=== PATIENT | female | born 1960 | race Caucasian/White ===

== ENCOUNTER 2016-10-30 16:43 | Emergency (ER) | payer MEDICARE ==
[2016-10-30 16:58] VITALS: BP 151/101
[2016-10-30] MEDS ORDERED: CEPH500C PO (17:14)
[2016-10-30] MEDS ORDERED: TRAM1TAB4 PO (17:14)
--- NOTE | 2016-10-30 17:15 | PHYS DOC ---
Past Medical History Past Medical History: Hypertension, Hypothyroid Additional Past Medical Histor: BACK PAIN Past Surgical History: No Surgical History Alcohol Use: None Drug Use: None Adult General Chief Complaint Chief Complaint: DENTAL PROBLEM HPI HPI Patient is a 56 year old female presents emergency room with a primary complaint of left lower dental pain for the past 3-4 days. She states that she essentially had a broken tooth within that timeframe. Patient does admit to having chronic dental problems and ongoing cavities. She denies any antibiotic use or dental work within the past 90 days. Review of Systems Review of Systems Constitutional: Denies fever or chills [] Eyes: Denies change in visual acuity, redness, or eye pain [] HENT: Denies nasal congestion or sore throat [] Respiratory: Denies cough or shortness of breath [] Cardiovascular: No additional information not addressed in HPI [] GI: Denies abdominal pain, nausea, vomiting, bloody stools or diarrhea [] : Denies dysuria or hematuria [] Musculoskeletal: Denies back pain or joint pain [] Integument: Denies rash or skin lesions [] Neurologic: Denies headache, focal weakness or sensory changes [] Endocrine: Denies polyuria or polydipsia [] Allergies Allergies Allergies Coded Allergies Type Severity Reaction Last Updated Verified NSAIDS (Non-Steroidal Anti-Inflamma Allergy Intermediate PASS OUT 10/30/16 Yes Penicillins Allergy Intermediate RASH 10/30/16 Yes Sulfa (Sulfonamide Antibiotics) Allergy Intermediate RASH 10/30/16 Yes Tetracyclines Allergy Intermediate RASH 10/30/16 Yes aspirin Allergy Intermediate PASS OUT 10/30/16 Yes Physical Exam Physical Exam Constitutional: Well developed, well nourished, no acute distress, non-toxic appearance. [] HENT: Normocephalic, atraumatic, bilateral external ears normal, oropharynx moist, no oral exudates, nose normal. There is no trismus. There is widespread dental caries and very stages of decay. The left first mandibular molar is decayed to the gumline with mild gingival swelling. There is no adjacent gingival abscesses or purulent drainage. Eyes: PERRLA, EOMI, conjunctiva normal, no discharge. [] Neck: Normal range of motion, no tenderness, supple, no stridor. [] Cardiovascular:Heart rate regular rhythm, no murmur [] Lungs & Thorax: Bilateral breath sounds clear to auscultation [] Abdomen: Bowel sounds normal, soft, no tenderness, no masses, no pulsatile masses. [] Skin: Warm, dry, no erythema, no rash. [] Back: No tenderness, no CVA tenderness. [] Extremities: No tenderness, no cyanosis, no clubbing, ROM intact, no edema. [] Neurologic: Alert and oriented X 3, normal motor function, normal sensory function, no focal deficits noted. [] Psychologic: Affect normal, judgement normal, mood normal. [] Current Patient Data Vital Signs Vital Signs Date Time Temp Pulse Resp B/P Pulse Ox O2 Delivery O2 Flow Rate FiO2 10/30/16 16:58 113 22 97 Room Air EKG EKG [] Radiology/Procedures Radiology/Procedures [] Course & Med Decision Making Course & Med Decision Making Pertinent Labs and Imaging studies reviewed. (See chart for details) [] Dragon Disclaimer Dragon Disclaimer This electronic medical record was generated, in whole or in part, using a voice recognition dictation system. Departure Departure Impression: Primary Impression: Dental caries Disposition: HOME, SELF-CARE Condition: GOOD Patient Instructions: Dental Caries-Brief Additional Instructions: 1. Take the medications as prescribed. 2. Review the discharge instructions provided for self-care and reasons to return to the emergency department. 3. Use the list provided for assistance in finding a clinic or dental school to provide dental care. Be sure to begin calling Tuesday to schedule an appointment. Scripts Tramadol Hcl/Acetaminophen (Tramadol-Acetaminophn 37.5-325)1 Each Tablet1 Tab PO Q4-6HRS #20 TAB Prov:BASIM DOUGLAS 10/30/16 Cephalexin 500 Mg Capsule1 Cap PO TID #30 CAP Prov:BASIM DOUGALS 10/30/16 BASIM DOUGLAS Oct 30, 2016 17:15
[2016-10-31] MEDS ORDERED: ONDA4TAB7 PO (05:57)
== END 2016-10-30 17:23 | disposition home or self-care (01) ==
LOC: ER 16:43
DX: K02.9 Dental caries, unspecified (principal); K08.89 Other specified disorders of teeth and supporting structures; K03.81 Cracked tooth; E03.9 Hypothyroidism, unspecified; I10 Essential (primary) hypertension; Z88.0 Allergy status to penicillin; Z88.2 Allergy status to sulfonamides; Z88.8 Allergy status to other drugs, medicaments and biological substances
CPT/HCPCS: 99283

== ENCOUNTER 2016-10-31 05:04 | Emergency (ER) | payer MEDICARE ==
[~2016-10-31] VITALS: Ht 160 cm; Wt 89.8 kg
[~2016-10-31 05:04] MED LIST: CEPH500C PO; TRAM1TAB4 PO
[2016-10-31 05:14] VITALS: BP 151/94
--- NOTE | 2016-10-31 05:28 | PHYS DOC ---
Past Medical History Past Medical History: Hypertension, Hypothyroid Additional Past Medical Histor: BACK PAIN Past Surgical History: No Surgical History Alcohol Use: None Drug Use: None Adult General Chief Complaint Chief Complaint: NAUSEA/VOMITING/DIARRHA HPI HPI 56-year-old female who seen earlier today and given a prescription for Keflex for an ongoing tooth infection is now she's had persistent nausea and vomiting for the last 3 hours. She does states she has significant sciatic pain that she suffers from chronically he has minimal take her pain medications because of the nausea and vomiting. She additionally states she is having ongoing tooth pain. Patient states she's allergic to NSAIDs. She does admit to smoking marijuana tonight and having an alcoholic beverage prior to her symptoms. She does claim some mild epigastric discomfort. Review of Systems Review of Systems Constitutional: Denies fever or chills [] Eyes: Denies change in visual acuity, redness, or eye pain [] HENT: Denies nasal congestion or sore throat [] Respiratory: Denies cough or shortness of breath [] Cardiovascular: No additional information not addressed in HPI [] GI: Has abdominal pain, has nausea, has vomiting, denies bloody stools, denies diarrhea [] : Denies dysuria or hematuria [] Musculoskeletal: Denies back pain or joint pain [] Integument: Denies rash or skin lesions [] Neurologic: Denies headache, focal weakness or sensory changes [] Endocrine: Denies polyuria or polydipsia [] Current Medications Current Medications Current Medications Medications (Trade) Dose Ordered Sig/Mario Start Time Stop Time Status Last Admin Dose Admin Multi-Ingredient Mouthwash/Gargle (Gi Cocktail Single Dose) 15 ml 1X ONCE 10/31/16 05:30 10/31/16 05:31 DC 10/31/16 05:35 15 ML Ondansetron HCl (Zofran Odt) 4 mg 1X ONCE 10/31/16 05:30 10/31/16 05:31 DC 10/31/16 05:35 4 MG Allergies Allergies Allergies Coded Allergies Type Severity Reaction Last Updated Verified NSAIDS (Non-Steroidal Anti-Inflamma Allergy Intermediate PASS OUT 10/30/16 Yes Penicillins Allergy Intermediate RASH 10/30/16 Yes Sulfa (Sulfonamide Antibiotics) Allergy Intermediate RASH 10/30/16 Yes Tetracyclines Allergy Intermediate RASH 10/30/16 Yes aspirin Allergy Intermediate PASS OUT 10/30/16 Yes Physical Exam Physical Exam Constitutional: Well developed, well nourished, no acute distress, non-toxic appearance. [] HENT: Normocephalic, atraumatic, bilateral external ears normal, oropharynx moist, no oral exudates, nose normal. [] Eyes: PERRLA, EOMI, conjunctiva normal, no discharge. [] Neck: Normal range of motion, no tenderness, supple, no stridor. [] Cardiovascular:Heart rate regular rhythm, no murmur [] Lungs & Thorax: Bilateral breath sounds clear to auscultation [] Abdomen: Bowel sounds normal, soft, moderate epigastric tenderness, no masses, no pulsatile masses. [] Skin: Warm, dry, no erythema, no rash. [] Back: No tenderness, no CVA tenderness. [] Extremities: No tenderness, no cyanosis, no clubbing, ROM intact, no edema. [] Neurologic: Alert and oriented X 3, normal motor function, normal sensory function, no focal deficits noted. [] Psychologic: Affect normal, judgement normal, mood normal. [] Current Patient Data Vital Signs Vital Signs Date Time Temp Pulse Resp B/P Pulse Ox O2 Delivery O2 Flow Rate FiO2 10/31/16 05:14 98.3 87 16 151/94 97 Room Air 98.3 EKG EKG [] Radiology/Procedures Radiology/Procedures [] Course & Med Decision Making Course & Med Decision Making Pertinent Labs and Imaging studies reviewed. (See chart for details) This 56-year-old female who's had multiple episodes of nausea and vomiting will be given a dose of Zofran and a GI cocktail. A counselor at length that if she can stay well-hydrated that she will be safe to go home and continue taking her medications as prescribed. At this time her vital signs are normal and she does not appear toxic in any way. I do not see an indication to perform any laboratory workup as her symptom duration has only been for the last few hours. Ultimately, she will be discharged home to follow closely with her primary care doctor and a dentist for her tooth infection. I will be signing her out to Dr. Wong who will watch her closely for the next hour or so and she will then be discharged home with zofran and told to continue to take her medications as prescribed and continue to drink plenty of fluids at home. Vandana Disclaimer Dragpete Disclaimer This electronic medical record was generated, in whole or in part, using a voice recognition dictation system. Departure Departure Impression: Primary Impression: Dental caries Additional Impression: Nausea & vomiting Disposition: HOME, SELF-CARE Condition: STABLE Referrals: NO PCP (PCP) Patient Instructions: Dental Caries, Nausea and Vomiting, [id number] Additional Instructions: Please take your zofran as needed. Continue to take your antibiotic and pain medication as prescribed. Continue to drink plenty of fluids and stay well hydrated. Follow up with your primary doctor in the next 2-3 days and your dentist for your tooth infection. Scripts Ondansetron Hcl (Zofran)4 Mg Tablet4 Mg PO BID PRN NAUSEA/VOMITING #10 TAB Prov:ROBERT MARTINEZ DO 10/31/16 Problem Qualifiers ROBERT MARTINEZ DO Oct 31, 2016 05:28
[2016-10-31] MEDS ORDERED: LIDO:MAALOX:DONNATAL 1:1:1 15 ML SINGLE DOSE SWSW ONE (05:30)
[2016-10-31] MEDS ORDERED: ONDANSETRON ODT 4 MG TAB.RAPDIS PO ONE (05:30)
[2016-10-31] MEDS ORDERED: ONDA4TAB7 PO (05:57)
== END 2016-10-31 06:47 | disposition home or self-care (01) ==
LOC: ER 05:04
DX: R11.2 Nausea with vomiting, unspecified (principal); K02.9 Dental caries, unspecified; R10.13 Epigastric pain; I10 Essential (primary) hypertension; E03.9 Hypothyroidism, unspecified; Z88.2 Allergy status to sulfonamides; Z88.0 Allergy status to penicillin; Z88.6 Allergy status to analgesic agent; Z88.8 Allergy status to other drugs, medicaments and biological substances
CPT/HCPCS: 99283; Q0162

== ENCOUNTER 2016-11-24 18:30 | Emergency (ER) | payer MEDICARE ==
[~2016-11-24 18:30] MED LIST changes: +ONDA4TAB7 PO
== END 2016-11-24 20:15 | disposition left against medical advice (07) ==
LOC: ER 18:30
DX: R19.7 Diarrhea, unspecified (principal); Z53.21 Procedure and treatment not carried out due to patient leaving prior to being seen by health care provider

== ENCOUNTER 2017-02-17 11:35 | Emergency (ER) | payer MEDICARE ==
[~2017-02-17] VITALS: Ht 160 cm; Wt 91.2 kg
[2017-02-17 12:17] VITALS: BP 159/90
--- NOTE | 2017-02-17 12:42 | RAD ---
Lumbar spine, 3 views, 02/17/2017: History: Fall, patellar pain There is a mild lumbar scoliosis. The lumbar vertebral heights are well-maintained. There are moderate spurs, particularly in the upper lumbar spine. There are moderate degenerative changes involving the facet joints in the lower lumbar spine. Aortic calcific plaquing is present. IMPRESSION: 1. Moderate multilevel degenerative change. 2. No acute bony abnormality is detected. Pelvis with left hip, 02/17/2017: No fracture or dislocation is identified. The hip joint spaces are well preserved. There are mild marginal spurs at both hip joints. IMPRESSION: No acute pelvic or left hip abnormality is detected.
--- NOTE | 2017-02-17 12:53 | RAD ---
Indication fall. Head and facial injury. Noncontrast images of the head were obtained. Maxillofacial structures were also imaged. Maxillofacial images were reformatted in the coronal and sagittal planes. No prior imaging of the head is available. CT head: Findings. The calvarium appears unremarkable. The visualized paranasal sinuses appear normal. There is no subdural or epidural hematoma. There is no mass or midline shift. No hemorrhage is seen. No acute finding is apparent. Maxillofacial CT: Findings. There is some slight soft tissue swelling over the left forehead. Small polyps or retention cysts are noted associated with the left maxillary sinus. The mandible appears unremarkable. Zygomatic arches appear normal. No nasal or maxillary fracture is seen. The medial and lateral muñoz of the orbits appear normal. IMPRESSION: Negative study for facial fracture. Intracranially no acute or significant finding seen PQRS Compliance Statement: One or more of the following individualized dose reduction techniques were utilized for this examination: 1. Automated exposure control 2. Adjustment of the mA and/or kV according to patient size 3. Use of iterative reconstruction technique
[2017-02-17] MEDS ORDERED: METH-37 PO (13:07)
--- NOTE | 2017-02-17 13:07 | PHYS DOC ---
Past Medical History Past Medical History: Hypertension, Hypothyroid Additional Past Medical Histor: BACK PAIN Past Surgical History: No Surgical History Alcohol Use: Occasionally Drug Use: Marijuana Adult General Chief Complaint Chief Complaint: MECHANICAL FALL HPI HPI Patient is a 56 year old female with history of hypertension, hypothyroidism, chronic back pain, who presents today with mild left hip pain, low back pain, after falling 6 days ago, patient states the pain is worse when ambulating. Patient states she was at a bus stop sitting on a bench she states it was raining, she states she fell down 5 times from the bench. Patient denies any loss of consciousness. She does have facial bruising. She is denying any facial pain. She appears intoxicated. Review of Systems Review of Systems Constitutional: Denies fever or chills [] Eyes: Ecchymosis to the left eye HENT: Denies nasal congestion or sore throat [] Respiratory: Denies cough or shortness of breath [] Cardiovascular: No additional information not addressed in HPI [] GI: Denies abdominal pain, nausea, vomiting, bloody stools or diarrhea [] : Denies dysuria or hematuria [] Musculoskeletal: Left hip and low back pain Integument: Denies rash or skin lesions [] Neurologic: Denies headache, focal weakness or sensory changes [] Endocrine: Denies polyuria or polydipsia [] Allergies Allergies Allergies Coded Allergies Type Severity Reaction Last Updated Verified NSAIDS (Non-Steroidal Anti-Inflamma Allergy Intermediate PASS OUT 10/30/16 Yes Penicillins Allergy Intermediate RASH 10/30/16 Yes Sulfa (Sulfonamide Antibiotics) Allergy Intermediate RASH 10/30/16 Yes Tetracyclines Allergy Intermediate RASH 10/30/16 Yes aspirin Allergy Intermediate PASS OUT 10/30/16 Yes Physical Exam Physical Exam Constitutional: Well developed, well nourished, no acute distress, non-toxic appearance. [] HENT: Normocephalic, atraumatic, bilateral external ears normal, oropharynx moist, no oral exudates, nose normal. [] Eyes: PERRLA, EOMI, conjunctiva normal, no discharge. Mild periorbital ecchymosis noted on the left lower eyelid Neck: Normal range of motion, no tenderness, supple, no stridor. [] Cardiovascular:Heart rate regular rhythm, no murmur [] Lungs & Thorax: Bilateral breath sounds clear to auscultation [] Abdomen: Bowel sounds normal, soft, no tenderness, no masses, no pulsatile masses. [] Skin: Warm, dry, no erythema, no rash. [] Back: Diffuse paraspinal muscle tenderness to the left lower lumbar region, no midline tenderness, no CVA tenderness. [] Extremities: Mild tenderness of the left lateral hip region. Full range of motion to the left hip. +2 left pedal pulse. Neurologic: Alert and oriented X 3, normal motor function, normal sensory function, no focal deficits noted. [] Psychologic: Affect normal, judgement normal, mood normal. [] Current Patient Data Vital Signs Vital Signs Date Time Temp Pulse Resp B/P (MAP) Pulse Ox O2 Delivery O2 Flow Rate FiO2 02/17/17 12:17 98.6 100 18 94 Room Air 98.6 EKG EKG [] Radiology/Procedures Radiology/Procedures [] Course & Med Decision Making Course & Med Decision Making Pertinent Labs and Imaging studies reviewed. (See chart for details) Patient is in the ED complaining of low back pain, left hip pain, after falling down 6 days ago at the bus stop. She is noted to have periorbital ecchymosis on the left lower eyelid. We did a CT of the head and faciomaxillary which were negative for any acute findings. X-rays of the lumbar spine and were negative for any acute findings. Discharged with Robaxin. Instructed to follow-up with her own PCP. She does appear intoxicated in the ED though she denies any history of alcohol or drug abuse. Dragon Disclaimer Dragon Disclaimer This electronic medical record was generated, in whole or in part, using a voice recognition dictation system. Departure Departure Impression: Primary Impression: Fall from chair Additional Impressions: Lumbar contusion Contusion of face Contusion of hip, left Disposition: HOME, SELF-CARE Condition: STABLE Referrals: NO PCP (PCP) Follow-up with your doctor in one week Patient Instructions: Contusion, Fall Prevention and Home Safety, [id number] Additional Instructions: You were seen for hip pain, low back pain, and facial contusion after falling. Your x-rays and CT were normal today. We recommend you follow-up with your own primary care doctor in the next 7 days. Scripts Methocarbamol (ROBAXIN) 500 Mg Tablet 1 TAB PO TID, #25 TAB Prov: MUTUNGKARLA Singh APRN 02/17/17 Problem Qualifiers Primary Impression: Fall from chair Encounter type: initial encounter Qualified Codes: W07.XXXA - Fall from chair, initial encounter Additional Impressions: Lumbar contusion Encounter type: initial encounter Qualified Codes: S30.0XXA - Contusion of lower back and pelvis, initial encounter Contusion of face Encounter type: initial encounter Qualified Codes: S00.83XA - Contusion of other part of head, initial encounter KARLA MATHIAS APRN February 17, 2017 13:07
== END 2017-02-17 13:10 | disposition home or self-care (01) ==
LOC: ER 11:35
DX: S30.0XXA Contusion of lower back and pelvis, initial encounter (principal); S00.83XA Contusion of other part of head, initial encounter; S70.02XA Contusion of left hip, initial encounter; I10 Essential (primary) hypertension; E03.9 Hypothyroidism, unspecified; F12.10 Cannabis abuse, uncomplicated; Z88.0 Allergy status to penicillin; Z88.2 Allergy status to sulfonamides; Z88.1 Allergy status to other antibiotic agents; Z88.6 Allergy status to analgesic agent; W17.89XA Other fall from one level to another, initial encounter; Y93.89 Activity, other specified; Y92.521 Bus station as the place of occurrence of the external cause; Y99.8 Other external cause status
CPT/HCPCS: 70450; 70486; 72100; 73502; 99284-25

== ENCOUNTER 2017-03-22 17:57 | Inpatient (IN) | payer MEDICARE ==
[~2017-03-22] VITALS: Ht 160 cm; Wt 88.9 kg
[~2017-03-22 17:57] MED LIST changes: +METH-37 PO
--- NOTE | 2017-03-22 18:02 | PHYS DOC ---
Past Medical History Past Medical History: Hypertension, Hypothyroid Additional Past Medical Histor: BACK PAIN Past Surgical History: No Surgical History Alcohol Use: Occasionally Drug Use: Marijuana Adult General Chief Complaint Chief Complaint: SHORTNESS OF BREATH HPI HPI Patient is a 56 year old female who presents with productive cough and fever. She states it started feeling poorly couple days ago and she's been having green sputum production. She states she also feels nauseated. She does smoke and is trying to decrease how much she smokes. She has an albuterol inhaler that she's been using because of increasing shortness of breath. She states she was also hospitalized in October for pneumonia. Review of Systems Review of Systems Constitutional: Denies fever or chills [] Eyes: Denies change in visual acuity, redness, or eye pain [] HENT: Denies nasal congestion or sore throat [] Respiratory: As it for cough and shortness of breath. Cardiovascular: No additional information not addressed in HPI [] GI: Denies abdominal pain, nausea, vomiting, bloody stools or diarrhea [] : Denies dysuria or hematuria [] Musculoskeletal: Denies back pain or joint pain [] Integument: Denies rash or skin lesions [] Neurologic: Denies headache, focal weakness or sensory changes [] Endocrine: Denies polyuria or polydipsia [] Current Medications Current Medications Current Medications Medications (Trade) Dose Ordered Sig/Mario Start Time Stop Time Status Last Admin Dose Admin Acetaminophen (Tylenol) 1,000 mg 1X ONCE 03/22/17 19:30 03/22/17 19:31 DC 03/22/17 19:12 1,000 MG Albuterol/ Ipratropium (Duoneb) 3 ml 1X ONCE 03/22/17 19:00 03/22/17 19:01 DC 03/22/17 18:32 3 ML Azithromycin 250 ml @ 250 mls/hr 1X ONCE 03/22/17 21:00 03/22/17 21:59 Ceftriaxone Sodium 1 gm/ Sodium Chloride 50 ml @ 100 mls/hr Q24H 03/22/17 20:30 UNV Ondansetron HCl (Zofran) 4 mg 1X ONCE 03/22/17 19:30 03/22/17 19:31 DC 03/22/17 19:13 4 MG Sodium Chloride 1,000 ml @ 1,000 mls/hr 1X ONCE 03/22/17 19:30 03/22/17 20:29 DC 03/22/17 19:14 1,000 MLS/HR Allergies Allergies Allergies Coded Allergies Type Severity Reaction Last Updated Verified NSAIDS (Non-Steroidal Anti-Inflamma Allergy Intermediate PASS OUT 10/30/16 Yes Penicillins Allergy Intermediate RASH 10/30/16 Yes Sulfa (Sulfonamide Antibiotics) Allergy Intermediate RASH 10/30/16 Yes Tetracyclines Allergy Intermediate RASH 10/30/16 Yes aspirin Allergy Intermediate PASS OUT 10/30/16 Yes Physical Exam Physical Exam Constitutional: Well developed, well nourished, no acute distress, non-toxic appearance. [] HENT: Normocephalic, atraumatic, bilateral external ears normal, oropharynx moist, no oral exudates, nose normal. [] Eyes: PERRLA, EOMI, conjunctiva normal, no discharge. [] Neck: Normal range of motion, no tenderness, supple, no stridor. [] Cardiovascular:Heart rate regular rhythm, no murmur [] Lungs & Thorax: Coarse bilaterally with expiratory wheezes Abdomen: Bowel sounds normal, soft, no tenderness, no masses, no pulsatile masses. [] Skin: Warm, dry, no erythema, no rash. [] Back: No tenderness, no CVA tenderness. [] Extremities: No tenderness, no cyanosis, no clubbing, ROM intact, no edema. [] Neurologic: Alert and oriented X 3, normal motor function, normal sensory function, no focal deficits noted. [] Psychologic: Affect normal, judgement normal, mood normal. [] Current Patient Data Vital Signs Vital Signs Date Time Temp Pulse Resp B/P (MAP) Pulse Ox O2 Delivery O2 Flow Rate FiO2 03/22/17 19:57 104 130/85 (100) 91 Room Air 03/22/17 18:30 29 03/22/17 18:00 100.1 100.1 Lab Values Laboratory Tests Test 03/22/17 18:10 03/22/17 18:40 White Blood Count 9.2 x10^3/uL (4.0-11.0) Red Blood Count 4.77 x10^6/uL (3.50-5.40) Hemoglobin 14.7 g/dL (12.0-15.5) Hematocrit 42.6 % (36.0-47.0) Mean Corpuscular Volume 89 fL (79-100) Mean Corpuscular Hemoglobin 31 pg (25-35) Mean Corpuscular Hemoglobin Concent 34 g/dL (31-37) Red Cell Distribution Width 14.5 % (11.5-14.5) Platelet Count 285 x10^3/uL (140-400) Neutrophils (%) (Auto) 75 % (31-73) H Lymphocytes (%) (Auto) 17 % (24-48) L Monocytes (%) (Auto) 7 % (0-9) Eosinophils (%) (Auto) 0 % (0-3) Basophils (%) (Auto) 1 % (0-3) Neutrophils # (Auto) 6.9 x10^3uL (1.8-7.7) Lymphocytes # (Auto) 1.6 x10^3/uL (1.0-4.8) Monocytes # (Auto) 0.7 x10^3/uL (0.0-1.1) Eosinophils # (Auto) 0.0 x10^3/uL (0.0-0.7) Basophils # (Auto) 0.1 x10^3/uL (0.0-0.2) Sodium Level 138 mmol/L (136-145) Potassium Level 3.5 mmol/L (3.5-5.1) Chloride Level 100 mmol/L (98-107) Carbon Dioxide Level 26 mmol/L (21-32) Anion Gap 12 (6-14) Blood Urea Nitrogen 11 mg/dL (7-20) Creatinine 0.8 mg/dL (0.6-1.0) Estimated GFR (Cockcroft-Gault) 74.2 Glucose Level 120 mg/dL (70-99) H Lactic Acid Level 2.6 mmol/L (0.4-2.0) H Calcium Level 9.4 mg/dL (8.5-10.1) Magnesium Level 1.6 mg/dL (1.8-2.4) L Total Bilirubin 0.4 mg/dL (0.2-1.0) Direct Bilirubin 0.1 mg/dL (0.0-0.2) Aspartate Amino Transferase (AST) 17 U/L (15-37) Alanine Aminotransferase (ALT) 21 U/L (14-59) Alkaline Phosphatase 116 U/L (46-116) Creatine Kinase 68 U/L (26-192) Creatine Kinase MB (Mass) 0.8 ng/mL (0.0-3.6) Creatine Kinase MB Relative Index % (0-4) Troponin I Quantitative < 0.017 ng/mL (0.000-0.055) FV-Eqr-Y-Type Natriuretic Peptide 151 pg/mL (0-124) H Total Protein 8.0 g/dL (6.4-8.2) Albumin 3.4 g/dL (3.4-5.0) Lipase 93 U/L (73-393) Urine Collection Type Unknown Urine Color Pauline Urine Clarity Clear Urine pH 5.5 Urine Specific [place] 1.025 Urine Protein 100 mg/dL (NEG-TRACE) Urine Glucose (UA) Negative mg/dL (NEG) Urine Ketones (Stick) Trace mg/dL (NEG) Urine Blood Negative (NEG) Urine Nitrite Negative (NEG) Urine Bilirubin Small (NEG) Urine Urobilinogen Dipstick 0.2 mg/dL (0.2 mg/dL) Urine Leukocyte Esterase Negative (NEG) Urine RBC 0 /HPF (0-2) Urine WBC 1-4 /HPF (0-4) Urine Squamous Epithelial Cells Few /LPF Urine Bacteria Few /HPF (0-FEW) Urine Hyaline Casts Many /HPF Urine Granular Casts Few /HPF Urine Mucus Mod /LPF Laboratory Tests 03/22/17 18:10 Laboratory Tests 03/22/17 18:10 EKG EKG EKG shows sinus tachycardia with rate of [address] elevations or T- wave inversions, left axis deviation noted, QTC 451 ms, as interpreted by me. Radiology/Procedures Radiology/Procedures Two-view chest x-ray shows streaky infiltrate in the right lower lobe, no pneumothorax, no bony abnormalities noted. As interpreted by me. Impressions: Community acquired pneumonia Tobacco abuse Tachycardia Fever Elevated lactic acid Course & Med Decision Making Course & Med Decision Making Pertinent Labs and Imaging studies reviewed. (See chart for details) She presents with tachycardia, fever and chest x-ray with likely an infiltrate. We'll give Rocephin and azithromycin, IV fluids, Tylenol and admit to the hospitalist. Patient is agreeable to the plan. Dr. Broderick is accepting the patient for admission, interim orders have been written. Vandana Disclaimer Vandana Disclaimer This electronic medical record was generated, in whole or in part, using a voice recognition dictation system. Departure Departure Impression: Primary Impression: Pneumonia Admitting Physician: Alethea lOivier Condition: STABLE Referrals: NO PCP (PCP) Problem Qualifiers Primary Impression: Pneumonia Pneumonia type: due to unspecified organism Laterality: right Lung location : lower lobe of lung Qualified Codes: J18.1 - Lobar pneumonia, unspecified organism VINAYAK BROWN MD Mar 22, 2017 18:02
[2017-03-22 18:29] LABS: BASO # 0.1 x10^3/uL (0.0-0.2); BASO % 1 % (0-3); EOS % 0 % (0-3); HEMATOCRIT 42.6 % (36.0-47.0); HEMOGLOBIN 14.7 g/dL (12.0-15.5); LYMPH # 1.6 x10^3/uL (1.0-4.8); LYMPH % 17 % (24-48); MEAN CORPUSCULAR HEMOGLOBIN 31 pg (25-35); MEAN CORPUSCULAR HGB CONC 34 g/dL (31-37); MEAN CORPUSCULAR VOLUME 89 fL (79-100); MONO % 7 % (0-9); NEUT % 75 % (31-73); PLATELET COUNT 285 x10^3/uL (140-400); RED BLOOD COUNT 4.77 x10^6/uL (3.50-5.40); RED CELL DISTRIBUTION WIDTH 14.5 % (11.5-14.5); WHITE BLOOD COUNT 9.2 x10^3/uL (4.0-11.0)
[2017-03-22 18:47] LABS: CALCIUM 9.4 mg/dL (8.5-10.1); CREATININE 0.8 mg/dL (0.6-1.0); GFR 74.2; POTASSIUM 3.5 mmol/L (3.5-5.1)
[2017-03-22 18:52] LABS: BILIRUBIN,URINE SMALL (NEG); GLUCOSE,URINE NEGATIVE (NEG); NITRITE,URINE NEGATIVE (NEG); PH,URINE 5.5; PROTEIN,URINE 100 mg/dL (NEG-TRACE); UROBILINOGEN,URINE 0.2 mg/dL (0.2 mg/dL)
[2017-03-22 18:52] LABS: ALBUMIN 3.4 g/dL (3.4-5.0); DIRECT BILIRUBIN 0.1 mg/dL (0.0-0.2); MAGNESIUM 1.6 mg/dL (1.8-2.4); TOTAL BILIRUBIN 0.4 mg/dL (0.2-1.0)
[2017-03-22] MEDS ORDERED: IPRATRPIUM/ALBUTEROL 0.5/2.5MG 3 ML NEBU. NEB ONE (19:00)
[2017-03-22 19:05] LABS: BACTERIA,URINE FEW /HPF (0-FEW); RBC,URINE 0 /HPF (0-2); SQUAMOUS EPITHELIAL CELL,UR FEW /LPF
[2017-03-22 19:10] LABS: CKMB MASS 0.8 ng/mL (0.0-3.6)
[2017-03-22 19:11] LABS: CREATINE KINASE 68 U/L (26-192)
[2017-03-22] MEDS ORDERED: IV NORMAL SALINE 1000ML BAG 1,000 ML IV ONE (19:30)
[2017-03-22] MEDS ORDERED: ACETAMINOPHEN 500 MG TABLET PO ONE (19:30)
[2017-03-22] MEDS ORDERED: ONDANSETRON PF 4 MG/2 ML VIAL. IV ONE (19:30)
[2017-03-22] MEDS ORDERED: AZITHRMYCN 500MG IVPB FOR OMNI 250 ML IV ONE (21:00)
--- NOTE | 2017-03-22 21:59 | PDOC1 ---
History and Physical Date of Admission Date of Admission DATE: 03/22/17 TIME: 21:49 Identification/Chief Complaint Chief Complaint cough, soa Problems: Source Source: Caregiver, Chart review, Patient History of Present Illness History of Present Illness 56 y/o female, smoker, few days hx cough, soa, no fevers comes in bec of worsening SOA. Claims yellowish cough, no white ct but tachycardic on arrival. wheezy no reports of destn, CXR RLL consolidation,. HAd PNA 1 yr ago needing 5 day stay in around Sep 2016. Wheezy on auscultation. Started on CAP coverage Denies recent sick contact or travel, no PCP Past Medical History Cardiovascular: No pertinent hx Pulmonary: Asthma, Bronchitis GI: No pertinent hx Heme/Onc: No pertinent hx Hepatobiliary: No pertinent hx Psych: No pertinent hx Musculoskeletal: low back pain Rheumatologic: No pertinent hx ENT: No pertinent hx Renal/: No pertinent hx Endocrine: Hypothyroidism Dermatology: No pertinent hx Social History Smoke: 1 pack per day ALCOHOL: occassional Drugs: None Current Problem List Problem List Problems Medical Problems: (1) Pneumonia Status: Acute Problems: Current Medications Current Medications Current Medications Albuterol/ Ipratropium (Duoneb) 3 ml 1X ONCE NEB Last administered on 18:32; Start 03/22/17 at 19:00; Stop 03/22/17 at 19:01; Status DC Acetaminophen (Tylenol) 1,000 mg 1X ONCE PO Last administered on 03/22/17 19: 12; Start 03/22/17 at 19:30; Stop 03/22/17 at 19:31; Status DC Ondansetron HCl (Zofran) 4 mg 1X ONCE IV Last administered on 03/22/17 19:13; Start 03/22/17 at 19:30; Stop 03/22/17 at 19:31; Status DC Sodium Chloride 1,000 ml @ 1,000 mls/hr 1X ONCE IV Last administered on 19:14; Start 03/22/17 at 19:30; Stop 03/22/17 at 20:29; Status DC Ceftriaxone Sodium 1 gm/ Sodium Chloride 50 ml @ 100 mls/hr Q24H IV ; Start 03/22/17 at 20:30; Stop 03/22/17 at 21:13; Status DC Azithromycin 250 ml @ 250 mls/hr 1X ONCE IV Last administered on 03/22/17t 20: 57; Start 03/22/17 at 21:00; Stop 03/22/17 at 21:59 Ceftriaxone Sodium 50 ml @ 100 mls/hr 1X ONCE IV ; Start 03/22/17 at 22:00; Stop 03/22/17 at 22:00; Status DC Ceftriaxone Sodium 1 gm/ Sodium Chloride 50 ml @ 100 mls/hr Q24H IV ; Start 03/22/17 at 22:00 Active Scripts Active Robaxin (Methocarbamol) 500 Mg Tablet 1 Tab PO TID Zofran (Ondansetron Hcl) 4 Mg Tablet 4 Mg PO BID PRN Tramadol-Acetaminophn 37.5-325 (Tramadol Hcl/Acetaminophen) 1 Each Tablet 1 Tab PO Q4-6HRS Cephalexin 500 Mg Capsule 1 Cap PO TID Allergies Allergies: Coded Allergies: NSAIDS (Non-Steroidal Anti-Inflamma (Verified Allergy, Intermediate, PASS OUT, 10/30/16) Penicillins (Verified Allergy, Intermediate, RASH, 10/30/16) Sulfa (Sulfonamide Antibiotics) (Verified Allergy, Intermediate, RASH, ) Tetracyclines (Verified Allergy, Intermediate, RASH, 10/30/16) aspirin (Verified Allergy, Intermediate, PASS OUT, 10/30/16) ROS General: YES: Chills, Other (fever?) PSYCHOLOGICAL ROS: No: Anxiety, Behavioral Disorder, Concentration difficultie , Decreased libido, Depression, Disorientation, Hallucinations, Hostility, Irritablity, Memory difficulties, Mood Swings, Obsessive thoughts, Physical abuse, Sexual abuse, Sleep disturbances, Suicidal ideation, Other Eyes: No Blurry vision, No Decreased vision, No Double vision, No Dry eyes, No Excessive tearing, No Eye Pain, No Itchy Eyes, No Loss of vision, No Photophobia , No Scotomata, No Uses contacts, No Uses glasses, No Other HEENT: No: Heacaches, Visual Changes, Hearing change, Nasal congestion, Nasal discharge, Oral lesions, Sinus pain, Sore Throat, Epistaxis, Sneezing, Snoring, Tinnitus, Vertigo, Vocal changes, Other ALLERGY AND IMMUNOLOGY: No: Hives, Insect Bite Sensitivity, Itchy/Watery Eyes, Nasal Congestion, Post Nasal Drip, Seasonal Allergies, Other Hematological and Lymphatic: No: Bleeding Problems, Blood Clots, Blood Transfusions, Brusing, Night Sweats, Pallor, Swollen Lymph Nodes, Other ENDOCRINE: No: Breast Changes, Galactorrhea, Hair Pattern Changes, Hot Flashes , Malaise/lethargy, Mood Swings, Palpitations, Polydipsia/polyuria, Skin Changes , Temperature Intolerance, Unexpected Weight Changes, Other Breast: No New/Changing Breast Lumps, No Nipple changes, No Nipple discharge, No Other Respiratory: YES: Cough, Shortness of breath, SOB with excertion Cardiovascular: No Chest Pain, No Palpitations, No Orthopnea, No Paroxysmal Noc. Dyspnea, No Edema, No Lt Headedness, No Other Gastrointestinal: No Nausea, No Vomiting, No Abdominal Pain, No Diarrhea, No Constipation, No Melena, No Hematochezia, No Other Genitourinary: No Dysuria, No Frequency, No Incontinence, No Hematuria, No Retention, No Discharge, No Urgency, No Pain, No Flank Pain, No Other, No , No , No , No , No , No , No Musculoskeletal: No Gait Disturbance, No Joint Pain, No Joint Stiffness, No Joint Swelling, No Muscle Pain, No Muscular Weakness, No Pain In:, No Swelling In:, No Other Neurological: No Behavorial Changes, No Bowel/Bladder ControlChng, No Confusion , No Dizziness, No Gait Disturbance, No Headaches, No Impaired Coord/balance, No Memory Loss, No Numbness/Tingling, No Seizures, No Speech Problems, No Tremors, No Visual Changes, No Weakness, No Other Skin: No Dry Skin, No Eczema, No Hair Changes, No Lumps, No Mole Changes, No Mottling, No Nail Changes, No Pruritus, No Rash, No Skin Lesion Changes, No Other, No Acne Physical Exam General: Alert, Oriented X3, Cooperative, No acute distress HEENT: PERRLA Lungs: Normal air movement, Other (wheezy, no crackles) Breasts: Normal, Rt breast nml w/o mass, Lt breast nml w/o mass, Nipples normal Abdomen: Normal bowel sounds, Soft, No tenderness, No hepatosplenomegaly, No masses Rectal Exam: not examined PELVIC: Nml ext genitalia Extremities: No clubbing, No cyanosis, No edema, Normal pulses, No tenderness/ swelling Skin: No rashes, No breakdown, No significant lesion Neuro: Normal gait, Normal speech, Strength at 5/5 X4 ext, Normal tone, Sensation intact, Cranial nerves 3-12 NL, Reflexes 2+ Psych/Mental Status: Mental status NL, Mood NL Vitals Vitals Vital Signs Date Time Temp Pulse Resp B/P (MAP) Pulse Ox O2 Delivery O2 Flow Rate FiO2 03/22/17 20:55 99 115/77 (90) 93 Room Air 03/22/17 18:30 29 03/22/17 18:00 100.1 100.1 Labs Labs Laboratory Tests Test 03/22/17 18:10 03/22/17 18:40 White Blood Count 9.2 x10^3/uL (4.0-11.0) Red Blood Count 4.77 x10^6/uL (3.50-5.40) Hemoglobin 14.7 g/dL (12.0-15.5) Hematocrit 42.6 % (36.0-47.0) Mean Corpuscular Volume 89 fL (79-100) Mean Corpuscular Hemoglobin 31 pg (25-35) Mean Corpuscular Hemoglobin Concent 34 g/dL (31-37) Red Cell Distribution Width 14.5 % (11.5-14.5) Platelet Count 285 x10^3/uL (140-400) Neutrophils (%) (Auto) 75 % (31-73) Lymphocytes (%) (Auto) 17 % (24-48) Monocytes (%) (Auto) 7 % (0-9) Eosinophils (%) (Auto) 0 % (0-3) Basophils (%) (Auto) 1 % (0-3) Neutrophils # (Auto) 6.9 x10^3uL (1.8-7.7) Lymphocytes # (Auto) 1.6 x10^3/uL (1.0-4.8) Monocytes # (Auto) 0.7 x10^3/uL (0.0-1.1) Eosinophils # (Auto) 0.0 x10^3/uL (0.0-0.7) Basophils # (Auto) 0.1 x10^3/uL (0.0-0.2) Sodium Level 138 mmol/L (136-145) Potassium Level 3.5 mmol/L (3.5-5.1) Chloride Level 100 mmol/L (98-107) Carbon Dioxide Level 26 mmol/L (21-32) Anion Gap 12 (6-14) Blood Urea Nitrogen 11 mg/dL (7-20) Creatinine 0.8 mg/dL (0.6-1.0) Estimated GFR (Cockcroft-Gault) 74.2 Glucose Level 120 mg/dL (70-99) Lactic Acid Level 2.6 mmol/L (0.4-2.0) Calcium Level 9.4 mg/dL (8.5-10.1) Magnesium Level 1.6 mg/dL (1.8-2.4) Total Bilirubin 0.4 mg/dL (0.2-1.0) Direct Bilirubin 0.1 mg/dL (0.0-0.2) Aspartate Amino Transf (AST/SGOT) 17 U/L (15-37) Alanine Aminotransferase (ALT/SGPT) 21 U/L (14-59) Alkaline Phosphatase 116 U/L (46-116) Creatine Kinase 68 U/L (26-192) Creatine Kinase MB (Mass) 0.8 ng/mL (0.0-3.6) Creatine Kinase MB Relative Index % (0-4) Troponin I Quantitative < 0.017 ng/mL (0.000-0.055) CL-Gie-B-Type Natriuretic Peptide 151 pg/mL (0-124) Total Protein 8.0 g/dL (6.4-8.2) Albumin 3.4 g/dL (3.4-5.0) Lipase 93 U/L (73-393) Urine Collection Type Unknown Urine Color Pauline Urine Clarity Clear Urine pH 5.5 Urine Specific [place] 1.025 Urine Protein 100 mg/dL (NEG-TRACE) Urine Glucose (UA) Negative mg/dL (NEG) Urine Ketones (Stick) Trace mg/dL (NEG) Urine Blood Negative (NEG) Urine Nitrite Negative (NEG) Urine Bilirubin Small (NEG) Urine Urobilinogen Dipstick 0.2 mg/dL (0.2 mg/dL) Urine Leukocyte Esterase Negative (NEG) Urine RBC 0 /HPF (0-2) Urine WBC 1-4 /HPF (0-4) Urine Squamous Epithelial Cells Few /LPF Urine Bacteria Few /HPF (0-FEW) Urine Hyaline Casts Many /HPF Urine Granular Casts Few /HPF Urine Mucus Mod /LPF Laboratory Tests Test 03/22/17 18:10 03/22/17 18:40 White Blood Count 9.2 x10^3/uL (4.0-11.0) Red Blood Count 4.77 x10^6/uL (3.50-5.40) Hemoglobin 14.7 g/dL (12.0-15.5) Hematocrit 42.6 % (36.0-47.0) Mean Corpuscular Volume 89 fL (79-100) Mean Corpuscular Hemoglobin 31 pg (25-35) Mean Corpuscular Hemoglobin Concent 34 g/dL (31-37) Red Cell Distribution Width 14.5 % (11.5-14.5) Platelet Count 285 x10^3/uL (140-400) Neutrophils (%) (Auto) 75 % (31-73) Lymphocytes (%) (Auto) 17 % (24-48) Monocytes (%) (Auto) 7 % (0-9) Eosinophils (%) (Auto) 0 % (0-3) Basophils (%) (Auto) 1 % (0-3) Neutrophils # (Auto) 6.9 x10^3uL (1.8-7.7) Lymphocytes # (Auto) 1.6 x10^3/uL (1.0-4.8) Monocytes # (Auto) 0.7 x10^3/uL (0.0-1.1) Eosinophils # (Auto) 0.0 x10^3/uL (0.0-0.7) Basophils # (Auto) 0.1 x10^3/uL (0.0-0.2) Sodium Level 138 mmol/L (136-145) Potassium Level 3.5 mmol/L (3.5-5.1) Chloride Level 100 mmol/L (98-107) Carbon Dioxide Level 26 mmol/L (21-32) Anion Gap 12 (6-14) Blood Urea Nitrogen 11 mg/dL (7-20) Creatinine 0.8 mg/dL (0.6-1.0) Estimated GFR (Cockcroft-Gault) 74.2 Glucose Level 120 mg/dL (70-99) Lactic Acid Level 2.6 mmol/L (0.4-2.0) Calcium Level 9.4 mg/dL (8.5-10.1) Magnesium Level 1.6 mg/dL (1.8-2.4) Total Bilirubin 0.4 mg/dL (0.2-1.0) Direct Bilirubin 0.1 mg/dL (0.0-0.2) Aspartate Amino Transf (AST/SGOT) 17 U/L (15-37) Alanine Aminotransferase (ALT/SGPT) 21 U/L (14-59) Alkaline Phosphatase 116 U/L (46-116) Creatine Kinase 68 U/L (26-192) Creatine Kinase MB (Mass) 0.8 ng/mL (0.0-3.6) Creatine Kinase MB Relative Index % (0-4) Troponin I Quantitative < 0.017 ng/mL (0.000-0.055) FX-Ycw-U-Type Natriuretic Peptide 151 pg/mL (0-124) Total Protein 8.0 g/dL (6.4-8.2) Albumin 3.4 g/dL (3.4-5.0) Lipase 93 U/L (73-393) Urine Collection Type Unknown Urine Color Pauline Urine Clarity Clear Urine pH 5.5 Urine Specific [place] 1.025 Urine Protein 100 mg/dL (NEG-TRACE) Urine Glucose (UA) Negative mg/dL (NEG) Urine Ketones (Stick) Trace mg/dL (NEG) Urine Blood Negative (NEG) Urine Nitrite Negative (NEG) Urine Bilirubin Small (NEG) Urine Urobilinogen Dipstick 0.2 mg/dL (0.2 mg/dL) Urine Leukocyte Esterase Negative (NEG) Urine RBC 0 /HPF (0-2) Urine WBC 1-4 /HPF (0-4) Urine Squamous Epithelial Cells Few /LPF Urine Bacteria Few /HPF (0-FEW) Urine Hyaline Casts Many /HPF Urine Granular Casts Few /HPF Urine Mucus Mod /LPF VTE Prophylaxis Ordered VTE Prophylaxis Devices: Yes VTE Pharmacological Prophylaxi: Yes Assessment/Plan Assessment/Plan 1, CAP 2. SIRS POA, positive sepsis screen, elevated lactate 3. SMOker 4. Likely undiagnosed COPD PLAN: Admit 2 [place] CAp coverage Pulmo consult Nebs cough med SPutum cx Resme home meds PT/OT Seen at ER 16 Dw pt and ER MEI PENNINGTON MD Mar 22, 2017 21:59
[2017-03-22] MEDS ORDERED: ONDANSETRON PF 4 MG/2 ML VIAL. IV PRN (22:00)
[2017-03-22] MEDS ORDERED: traMADol 50 MG TABLET PO PRN (22:00)
[2017-03-22] MEDS ORDERED: ONDANSETRON ODT 4 MG TAB.RAPDIS. PO PRN (22:00)
[2017-03-22] MEDS ORDERED: ACETAMINOPHEN 325 MG TABLET. PO PRN ×2 (22:00)
[2017-03-22] MEDS: diazePAM 5 MG TABLET PO PRN (22:12)
[2017-03-22] MEDS: BENZONATATE 100 MG CAPSULE. PO SCH (22:12)
[2017-03-22] MEDS: guaiFENesin DM 200MG/20MG 10 ML SYRUP PO SCH (22:12)
[2017-03-22] MEDS: NICOTINE 21MG PATCH. TD SCH (22:13)
[2017-03-22] MEDS: IV NORMAL SALINE 1000ML BAG 1,000 ML IV SCH (22:13)
[2017-03-22] MEDS: methylPREDNISolone SOD SUCC PF 40 MG/ML VIAL. IV SCH (22:16)
[2017-03-22] MEDS ORDERED: METHOCARBAMOL 500 MG TABLET PO SCH (22:30)
[2017-03-22 23:00] VITALS: BP 92/65
[2017-03-23 03:00] VITALS: BP 104/65
[2017-03-23 04:03] LABS: BASO % 1 % (0-3); EOS % 0 % (0-3); HEMATOCRIT 39.8 % (36.0-47.0); HEMOGLOBIN 13.1 g/dL (12.0-15.5); LYMPH # 0.8 x10^3/uL (1.0-4.8); LYMPH % 14 % (24-48); MEAN CORPUSCULAR HEMOGLOBIN 30 pg (25-35); MEAN CORPUSCULAR HGB CONC 33 g/dL (31-37); MEAN CORPUSCULAR VOLUME 91 fL (79-100); MONO % 5 % (0-9); NEUT % 81 % (31-73); PLATELET COUNT 246 x10^3/uL (140-400); RED BLOOD COUNT 4.37 x10^6/uL (3.50-5.40); RED CELL DISTRIBUTION WIDTH 14.7 % (11.5-14.5); WHITE BLOOD COUNT 5.6 x10^3/uL (4.0-11.0)
[2017-03-23] MEDS: methylPREDNISolone SOD SUCC PF 40 MG/ML VIAL. IV SCH (06:01)
[2017-03-23] MEDS: diazePAM 5 MG TABLET PO PRN ×2 (06:10→12:38)
--- NOTE | 2017-03-23 06:29 | EKG ---
[facility] [address] [place] [address] Test Date: 2017-03-22 Test Time: 18:11:50 Pat Name: KAISER HANLEY Department: Room: [facility] Gender: F Archeologist: : 1960 Requested By: VINAYAK BROWN Order Number: [id number] Reading MD: Montse Hinson Measurements Intervals [place] Rate: 120 P: 36 WI: 126 QRS: -24 QRSD: 80 T: 49 QT: 316 QTc: 451 Interpretive Statements SINUS TACHYCARDIA LEFT ATRIAL ABNORMALITY LEFTWARD AXIS RI6.01 Unconfirmed report No previous ECG available for comparison Electronically Signed On 03-26-2017 18:26:19 CDT by Montse Hinson
[2017-03-23 07:00] VITALS: BP_SYST 104; BP_SYST 92; BP_DIAS 58; BP_DIAS 65
[2017-03-23] MEDS ORDERED: LEVOTHYROXINE 75 MCG TABLET PO SCH (07:00)
--- NOTE | 2017-03-23 08:04 | RAD ---
Indication shortness of breath. A single view of the chest was obtained. No prior imaging of the chest is available. The heart and pulmonary vessels appear within normal limits. No acute parenchymal infiltrate is seen in either lung. There is no pleural fluid or pneumothorax. There is slight elevation of the left hemidiaphragm the chronicity of which is uncertain. The finding is likely incidental. IMPRESSION: No acute or focal process is seen in the chest
--- NOTE | 2017-03-23 08:05 | RAD ---
Indication shortness of breath. A single lateral view of the chest was obtained and is correlated with a frontal image obtained 2 hours earlier. No acute finding is seen on the lateral view. There is no suggested significant pleural fluid. There are some degenerative changes in the thoracic spine. Mild wedging of several thoracic segments is noted, likely chronic. IMPRESSION: No acute finding seen on lateral imaging of the chest
[2017-03-23] MEDS: IV NORMAL SALINE 1000ML BAG 1,000 ML IV SCH (08:28)
[2017-03-23] MEDS: guaiFENesin DM 200MG/20MG 10 ML SYRUP PO SCH ×2 (08:31→13:00)
[2017-03-23] MEDS: BENZONATATE 100 MG CAPSULE. PO SCH ×2 (08:31→14:00)
[2017-03-23] MEDS: NICOTINE 21MG PATCH. TD SCH (08:32)
[2017-03-23] MEDS: IPRATRPIUM/ALBUTEROL 0.5/2.5MG 3 ML NEBU. NEB SCH ×2 (08:38→11:09)
[2017-03-23 11:00] VITALS: BP 125/61
[2017-03-23] MEDS ORDERED: ENOXAPARIN 40 MG/0.4 ML SYRINGE. SQ SCH (11:30)
[2017-03-23] MEDS ORDERED: PANTOPRAZOLE 40 MG TABLET.DR. PO SCH (11:30)
[2017-03-23] MEDS ORDERED: predniSONE 20 MG TABLET PO ONE (11:30)
--- NOTE | 2017-03-23 11:33 | PDOC ---
PROGRESS NOTES Chief Complaint Chief Complaint SOB ASSESSMENT AND PLAN: 1. Bronchitis: sputum cult pending. CXR clear. on azithro/ceftriax 2. Sepsis: + lactate POA 3. ?COPD: steroids; switch to PO. nebs. pulm consult 4. Tobacco use: encouraged cessation 5. Hypothyroidism: cont home synthroid 6. Prophylaxis: lovenox, PPI History of Present Illness History of Present Illness breathing fairly well on RA. eager to go home. Vitals Vitals Vital Signs Date Time Temp Pulse Resp B/P (MAP) Pulse Ox O2 Delivery O2 Flow Rate FiO2 03/23/17 11:10 Room Air 03/23/17 08:38 95 03/23/17 07:00 104/65 (78) 03/23/17 07:00 98.8 62 18 98.8 Physical Exam General: Alert, Oriented X3, Cooperative, No acute distress Heart: Regular rate Lungs: Other (UA rhonchi. no wheezing) Abdomen: Normal bowel sounds, Soft, No tenderness Extremities: No clubbing, No edema Skin: No rashes Labs LABS Laboratory Tests Test 03/22/17 18:10 03/22/17 18:40 03/23/17 02:50 White Blood Count 9.2 x10^3/uL (4.0-11.0) 5.6 x10^3/uL (4.0-11.0) Red Blood Count 4.77 x10^6/uL (3.50-5.40) 4.37 x10^6/uL (3.50-5.40) Hemoglobin 14.7 g/dL (12.0-15.5) 13.1 g/dL (12.0-15.5) Hematocrit 42.6 % (36.0-47.0) 39.8 % (36.0-47.0) Mean Corpuscular Volume 89 fL (79-100) 91 fL (79-100) Mean Corpuscular Hemoglobin 31 pg (25-35) 30 pg (25-35) Mean Corpuscular Hemoglobin Concent 34 g/dL (31-37) 33 g/dL (31-37) Red Cell Distribution Width 14.5 % (11.5-14.5) 14.7 % (11.5-14.5) Platelet Count 285 x10^3/uL (140-400) 246 x10^3/uL (140-400) Neutrophils (%) (Auto) 75 % (31-73) 81 % (31-73) Lymphocytes (%) (Auto) 17 % (24-48) 14 % (24-48) Monocytes (%) (Auto) 7 % (0-9) 5 % (0-9) Eosinophils (%) (Auto) 0 % (0-3) 0 % (0-3) Basophils (%) (Auto) 1 % (0-3) 1 % (0-3) Neutrophils # (Auto) 6.9 x10^3uL (1.8-7.7) 4.6 x10^3uL (1.8-7.7) Lymphocytes # (Auto) 1.6 x10^3/uL (1.0-4.8) 0.8 x10^3/uL (1.0-4.8) Monocytes # (Auto) 0.7 x10^3/uL (0.0-1.1) 0.3 x10^3/uL (0.0-1.1) Eosinophils # (Auto) 0.0 x10^3/uL (0.0-0.7) 0.0 x10^3/uL (0.0-0.7) Basophils # (Auto) 0.1 x10^3/uL (0.0-0.2) 0.0 x10^3/uL (0.0-0.2) Sodium Level 138 mmol/L (136-145) Potassium Level 3.5 mmol/L (3.5-5.1) Chloride Level 100 mmol/L (98-107) Carbon Dioxide Level 26 mmol/L (21-32) Anion Gap 12 (6-14) Blood Urea Nitrogen 11 mg/dL (7-20) Creatinine 0.8 mg/dL (0.6-1.0) Estimated GFR (Cockcroft-Gault) 74.2 Glucose Level 120 mg/dL (70-99) Lactic Acid Level 2.6 mmol/L (0.4-2.0) 2.2 mmol/L (0.4-2.0) Calcium Level 9.4 mg/dL (8.5-10.1) Magnesium Level 1.6 mg/dL (1.8-2.4) Total Bilirubin 0.4 mg/dL (0.2-1.0) Direct Bilirubin 0.1 mg/dL (0.0-0.2) Aspartate Amino Transf (AST/SGOT) 17 U/L (15-37) Alanine Aminotransferase (ALT/SGPT) 21 U/L (14-59) Alkaline Phosphatase 116 U/L (46-116) Creatine Kinase 68 U/L (26-192) Creatine Kinase MB (Mass) 0.8 ng/mL (0.0-3.6) Creatine Kinase MB Relative Index % (0-4) Troponin I Quantitative < 0.017 ng/mL (0.000-0.055) YQ-Yrs-P-Type Natriuretic Peptide 151 pg/mL (0-124) Total Protein 8.0 g/dL (6.4-8.2) Albumin 3.4 g/dL (3.4-5.0) Lipase 93 U/L (73-393) Urine Collection Type Unknown Urine Color Pauline Urine Clarity Clear Urine pH 5.5 Urine Specific [place] 1.025 Urine Protein 100 mg/dL (NEG-TRACE) Urine Glucose (UA) Negative mg/dL (NEG) Urine Ketones (Stick) Trace mg/dL (NEG) Urine Blood Negative (NEG) Urine Nitrite Negative (NEG) Urine Bilirubin Small (NEG) Urine Urobilinogen Dipstick 0.2 mg/dL (0.2 mg/dL) Urine Leukocyte Esterase Negative (NEG) Urine RBC 0 /HPF (0-2) Urine WBC 1-4 /HPF (0-4) Urine Squamous Epithelial Cells Few /LPF Urine Bacteria Few /HPF (0-FEW) Urine Hyaline Casts Many /HPF Urine Granular Casts Few /HPF Urine Mucus Mod /LPF JAQUELIN OLMEDO MD Mar 23, 2017 11:33
--- NOTE | 2017-03-23 12:17 | PDOC ---
PULMONARY PROGRESS NOTES Vitals Vital Signs Date Time Temp Pulse Resp B/P (MAP) Pulse Ox O2 Delivery O2 Flow Rate FiO2 03/23/17 11:10 Room Air 03/23/17 11:00 99.9 97 18 125/61 (82) 91 99.9 Labs Laboratory Tests Test 03/22/17 18:10 03/22/17 18:40 03/23/17 02:50 White Blood Count 9.2 x10^3/uL (4.0-11.0) 5.6 x10^3/uL (4.0-11.0) Red Blood Count 4.77 x10^6/uL (3.50-5.40) 4.37 x10^6/uL (3.50-5.40) Hemoglobin 14.7 g/dL (12.0-15.5) 13.1 g/dL (12.0-15.5) Hematocrit 42.6 % (36.0-47.0) 39.8 % (36.0-47.0) Mean Corpuscular Volume 89 fL (79-100) 91 fL (79-100) Mean Corpuscular Hemoglobin 31 pg (25-35) 30 pg (25-35) Mean Corpuscular Hemoglobin Concent 34 g/dL (31-37) 33 g/dL (31-37) Red Cell Distribution Width 14.5 % (11.5-14.5) 14.7 % (11.5-14.5) Platelet Count 285 x10^3/uL (140-400) 246 x10^3/uL (140-400) Neutrophils (%) (Auto) 75 % (31-73) 81 % (31-73) Lymphocytes (%) (Auto) 17 % (24-48) 14 % (24-48) Monocytes (%) (Auto) 7 % (0-9) 5 % (0-9) Eosinophils (%) (Auto) 0 % (0-3) 0 % (0-3) Basophils (%) (Auto) 1 % (0-3) 1 % (0-3) Neutrophils # (Auto) 6.9 x10^3uL (1.8-7.7) 4.6 x10^3uL (1.8-7.7) Lymphocytes # (Auto) 1.6 x10^3/uL (1.0-4.8) 0.8 x10^3/uL (1.0-4.8) Monocytes # (Auto) 0.7 x10^3/uL (0.0-1.1) 0.3 x10^3/uL (0.0-1.1) Eosinophils # (Auto) 0.0 x10^3/uL (0.0-0.7) 0.0 x10^3/uL (0.0-0.7) Basophils # (Auto) 0.1 x10^3/uL (0.0-0.2) 0.0 x10^3/uL (0.0-0.2) Sodium Level 138 mmol/L (136-145) Potassium Level 3.5 mmol/L (3.5-5.1) Chloride Level 100 mmol/L (98-107) Carbon Dioxide Level 26 mmol/L (21-32) Anion Gap 12 (6-14) Blood Urea Nitrogen 11 mg/dL (7-20) Creatinine 0.8 mg/dL (0.6-1.0) Estimated GFR (Cockcroft-Gault) 74.2 Glucose Level 120 mg/dL (70-99) Lactic Acid Level 2.6 mmol/L (0.4-2.0) 2.2 mmol/L (0.4-2.0) Calcium Level 9.4 mg/dL (8.5-10.1) Magnesium Level 1.6 mg/dL (1.8-2.4) Total Bilirubin 0.4 mg/dL (0.2-1.0) Direct Bilirubin 0.1 mg/dL (0.0-0.2) Aspartate Amino Transf (AST/SGOT) 17 U/L (15-37) Alanine Aminotransferase (ALT/SGPT) 21 U/L (14-59) Alkaline Phosphatase 116 U/L (46-116) Creatine Kinase 68 U/L (26-192) Creatine Kinase MB (Mass) 0.8 ng/mL (0.0-3.6) Creatine Kinase MB Relative Index % (0-4) Troponin I Quantitative < 0.017 ng/mL (0.000-0.055) RD-Jft-Z-Type Natriuretic Peptide 151 pg/mL (0-124) Total Protein 8.0 g/dL (6.4-8.2) Albumin 3.4 g/dL (3.4-5.0) Lipase 93 U/L (73-393) Urine Collection Type Unknown Urine Color Pauline Urine Clarity Clear Urine pH 5.5 Urine Specific [place] 1.025 Urine Protein 100 mg/dL (NEG-TRACE) Urine Glucose (UA) Negative mg/dL (NEG) Urine Ketones (Stick) Trace mg/dL (NEG) Urine Blood Negative (NEG) Urine Nitrite Negative (NEG) Urine Bilirubin Small (NEG) Urine Urobilinogen Dipstick 0.2 mg/dL (0.2 mg/dL) Urine Leukocyte Esterase Negative (NEG) Urine RBC 0 /HPF (0-2) Urine WBC 1-4 /HPF (0-4) Urine Squamous Epithelial Cells Few /LPF Urine Bacteria Few /HPF (0-FEW) Urine Hyaline Casts Many /HPF Urine Granular Casts Few /HPF Urine Mucus Mod /LPF Laboratory Tests Test 03/22/17 18:10 03/22/17 18:40 03/23/17 02:50 White Blood Count 9.2 x10^3/uL (4.0-11.0) 5.6 x10^3/uL (4.0-11.0) Red Blood Count 4.77 x10^6/uL (3.50-5.40) 4.37 x10^6/uL (3.50-5.40) Hemoglobin 14.7 g/dL (12.0-15.5) 13.1 g/dL (12.0-15.5) Hematocrit 42.6 % (36.0-47.0) 39.8 % (36.0-47.0) Mean Corpuscular Volume 89 fL (79-100) 91 fL (79-100) Mean Corpuscular Hemoglobin 31 pg (25-35) 30 pg (25-35) Mean Corpuscular Hemoglobin Concent 34 g/dL (31-37) 33 g/dL (31-37) Red Cell Distribution Width 14.5 % (11.5-14.5) 14.7 % (11.5-14.5) Platelet Count 285 x10^3/uL (140-400) 246 x10^3/uL (140-400) Neutrophils (%) (Auto) 75 % (31-73) 81 % (31-73) Lymphocytes (%) (Auto) 17 % (24-48) 14 % (24-48) Monocytes (%) (Auto) 7 % (0-9) 5 % (0-9) Eosinophils (%) (Auto) 0 % (0-3) 0 % (0-3) Basophils (%) (Auto) 1 % (0-3) 1 % (0-3) Neutrophils # (Auto) 6.9 x10^3uL (1.8-7.7) 4.6 x10^3uL (1.8-7.7) Lymphocytes # (Auto) 1.6 x10^3/uL (1.0-4.8) 0.8 x10^3/uL (1.0-4.8) Monocytes # (Auto) 0.7 x10^3/uL (0.0-1.1) 0.3 x10^3/uL (0.0-1.1) Eosinophils # (Auto) 0.0 x10^3/uL (0.0-0.7) 0.0 x10^3/uL (0.0-0.7) Basophils # (Auto) 0.1 x10^3/uL (0.0-0.2) 0.0 x10^3/uL (0.0-0.2) Sodium Level 138 mmol/L (136-145) Potassium Level 3.5 mmol/L (3.5-5.1) Chloride Level 100 mmol/L (98-107) Carbon Dioxide Level 26 mmol/L (21-32) Anion Gap 12 (6-14) Blood Urea Nitrogen 11 mg/dL (7-20) Creatinine 0.8 mg/dL (0.6-1.0) Estimated GFR (Cockcroft-Gault) 74.2 Glucose Level 120 mg/dL (70-99) Lactic Acid Level 2.6 mmol/L (0.4-2.0) 2.2 mmol/L (0.4-2.0) Calcium Level 9.4 mg/dL (8.5-10.1) Magnesium Level 1.6 mg/dL (1.8-2.4) Total Bilirubin 0.4 mg/dL (0.2-1.0) Direct Bilirubin 0.1 mg/dL (0.0-0.2) Aspartate Amino Transf (AST/SGOT) 17 U/L (15-37) Alanine Aminotransferase (ALT/SGPT) 21 U/L (14-59) Alkaline Phosphatase 116 U/L (46-116) Creatine Kinase 68 U/L (26-192) Creatine Kinase MB (Mass) 0.8 ng/mL (0.0-3.6) Creatine Kinase MB Relative Index % (0-4) Troponin I Quantitative < 0.017 ng/mL (0.000-0.055) PP-Lce-O-Type Natriuretic Peptide 151 pg/mL (0-124) Total Protein 8.0 g/dL (6.4-8.2) Albumin 3.4 g/dL (3.4-5.0) Lipase 93 U/L (73-393) Urine Collection Type Unknown Urine Color Pauline Urine Clarity Clear Urine pH 5.5 Urine Specific [place] 1.025 Urine Protein 100 mg/dL (NEG-TRACE) Urine Glucose (UA) Negative mg/dL (NEG) Urine Ketones (Stick) Trace mg/dL (NEG) Urine Blood Negative (NEG) Urine Nitrite Negative (NEG) Urine Bilirubin Small (NEG) Urine Urobilinogen Dipstick 0.2 mg/dL (0.2 mg/dL) Urine Leukocyte Esterase Negative (NEG) Urine RBC 0 /HPF (0-2) Urine WBC 1-4 /HPF (0-4) Urine Squamous Epithelial Cells Few /LPF Urine Bacteria Few /HPF (0-FEW) Urine Hyaline Casts Many /HPF Urine Granular Casts Few /HPF Urine Mucus Mod /LPF Medications Active Scripts Medications Dose Route/Sig Max Daily Dose Days Date Category Robaxin (Methocarbamol) 500 Mg Tablet 1 Tab PO TID 02/17/17 Rx Zofran (Ondansetron Hcl) 4 Mg Tablet 4 Mg PO BID PRN 10/31/16 Rx Tramadol-Acetaminophn 37.5-325 (Tramadol Hcl/Acetaminophen) 1 Each Tablet 1 Tab PO Q4-6HRS 10/30/16 Rx Cephalexin 500 Mg Capsule 1 Cap PO TID 10/30/16 Rx Impression . NOTE DICTATED AECOPD HOME IN AM OK ON TPAER PRED AND WILLIAM MATTA MD Mar 23, 2017 12:17
--- NOTE | 2017-03-23 12:39 | PDOC ---
PROGRESS NOTES Chief Complaint Chief Complaint SOB ASSESSMENT AND PLAN: 1. Bronchitis: sputum cult pending. CXR clear. on azithro/ceftriax 2. Sepsis: + lactate POA 3. ?COPD: steroids; switch to PO. nebs. pulm consult appreciated 4. Tobacco use: encouraged cessation 5. Hypothyroidism: cont home synthroid 6. Prophylaxis: lovenox, PPI 7. Dispo: home with azithro; F/U with Dr Curry Vitals Vitals Vital Signs Date Time Temp Pulse Resp B/P (MAP) Pulse Ox O2 Delivery O2 Flow Rate FiO2 03/23/17 11:10 Room Air 03/23/17 11:00 99.9 97 18 125/61 (82) 91 99.9 Physical Exam General: Alert, Oriented X3, Cooperative, No acute distress Heart: Regular rate Lungs: Other (UA rhonchi, no wheezing) Abdomen: Normal bowel sounds, Soft, No tenderness Extremities: No clubbing, No edema Skin: No rashes Labs LABS Laboratory Tests Test 03/22/17 18:10 03/22/17 18:40 03/23/17 02:50 White Blood Count 9.2 x10^3/uL (4.0-11.0) 5.6 x10^3/uL (4.0-11.0) Red Blood Count 4.77 x10^6/uL (3.50-5.40) 4.37 x10^6/uL (3.50-5.40) Hemoglobin 14.7 g/dL (12.0-15.5) 13.1 g/dL (12.0-15.5) Hematocrit 42.6 % (36.0-47.0) 39.8 % (36.0-47.0) Mean Corpuscular Volume 89 fL (79-100) 91 fL (79-100) Mean Corpuscular Hemoglobin 31 pg (25-35) 30 pg (25-35) Mean Corpuscular Hemoglobin Concent 34 g/dL (31-37) 33 g/dL (31-37) Red Cell Distribution Width 14.5 % (11.5-14.5) 14.7 % (11.5-14.5) Platelet Count 285 x10^3/uL (140-400) 246 x10^3/uL (140-400) Neutrophils (%) (Auto) 75 % (31-73) 81 % (31-73) Lymphocytes (%) (Auto) 17 % (24-48) 14 % (24-48) Monocytes (%) (Auto) 7 % (0-9) 5 % (0-9) Eosinophils (%) (Auto) 0 % (0-3) 0 % (0-3) Basophils (%) (Auto) 1 % (0-3) 1 % (0-3) Neutrophils # (Auto) 6.9 x10^3uL (1.8-7.7) 4.6 x10^3uL (1.8-7.7) Lymphocytes # (Auto) 1.6 x10^3/uL (1.0-4.8) 0.8 x10^3/uL (1.0-4.8) Monocytes # (Auto) 0.7 x10^3/uL (0.0-1.1) 0.3 x10^3/uL (0.0-1.1) Eosinophils # (Auto) 0.0 x10^3/uL (0.0-0.7) 0.0 x10^3/uL (0.0-0.7) Basophils # (Auto) 0.1 x10^3/uL (0.0-0.2) 0.0 x10^3/uL (0.0-0.2) Sodium Level 138 mmol/L (136-145) Potassium Level 3.5 mmol/L (3.5-5.1) Chloride Level 100 mmol/L (98-107) Carbon Dioxide Level 26 mmol/L (21-32) Anion Gap 12 (6-14) Blood Urea Nitrogen 11 mg/dL (7-20) Creatinine 0.8 mg/dL (0.6-1.0) Estimated GFR (Cockcroft-Gault) 74.2 Glucose Level 120 mg/dL (70-99) Lactic Acid Level 2.6 mmol/L (0.4-2.0) 2.2 mmol/L (0.4-2.0) Calcium Level 9.4 mg/dL (8.5-10.1) Magnesium Level 1.6 mg/dL (1.8-2.4) Total Bilirubin 0.4 mg/dL (0.2-1.0) Direct Bilirubin 0.1 mg/dL (0.0-0.2) Aspartate Amino Transf (AST/SGOT) 17 U/L (15-37) Alanine Aminotransferase (ALT/SGPT) 21 U/L (14-59) Alkaline Phosphatase 116 U/L (46-116) Creatine Kinase 68 U/L (26-192) Creatine Kinase MB (Mass) 0.8 ng/mL (0.0-3.6) Creatine Kinase MB Relative Index % (0-4) Troponin I Quantitative < 0.017 ng/mL (0.000-0.055) MS-Gyq-F-Type Natriuretic Peptide 151 pg/mL (0-124) Total Protein 8.0 g/dL (6.4-8.2) Albumin 3.4 g/dL (3.4-5.0) Lipase 93 U/L (73-393) Urine Collection Type Unknown Urine Color Pauline Urine Clarity Clear Urine pH 5.5 Urine Specific [place] 1.025 Urine Protein 100 mg/dL (NEG-TRACE) Urine Glucose (UA) Negative mg/dL (NEG) Urine Ketones (Stick) Trace mg/dL (NEG) Urine Blood Negative (NEG) Urine Nitrite Negative (NEG) Urine Bilirubin Small (NEG) Urine Urobilinogen Dipstick 0.2 mg/dL (0.2 mg/dL) Urine Leukocyte Esterase Negative (NEG) Urine RBC 0 /HPF (0-2) Urine WBC 1-4 /HPF (0-4) Urine Squamous Epithelial Cells Few /LPF Urine Bacteria Few /HPF (0-FEW) Urine Hyaline Casts Many /HPF Urine Granular Casts Few /HPF Urine Mucus Mod /LPF JAQUELIN OLMEDO MD Mar 23, 2017 12:39
[2017-03-23] MEDS ORDERED: AZIT250T6 PO (12:48)
[2017-03-23] MEDS ORDERED: GUAI5SYR PO (12:48)
[2017-03-23] MEDS ORDERED: PRED-220 PO (12:48)
[2017-03-23] MEDS ORDERED: LEVO75TA PO (12:48)
[2017-03-23] MEDS ORDERED: AZITHROMYCIN 500 MG in IV NORMAL SALINE 250ML 250 ML IV SCH (21:00)
--- NOTE | 2017-03-24 01:37 | CONS ---
DATE OF CONSULTATION: 03/23/2017 ATTENDING PHYSICIAN: Alethea Olivier M.D. REASON FOR CONSULTATION: The patient seen in pulmonary consultation at the request of Dr. Olivier for increasing shortness of air. 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 No hemoptysis. No chest pain or pressure. No syncope or near syncopal episodes. PAST MEDICAL HISTORY: COPD, tobacco dependence, depression, hypothyroidism. PAST SURGICAL HISTORY: None. SOCIAL HISTORY: She occasionally uses alcohol and smokes one pack of cigarettes a day. FAMILY HISTORY: No family history of lung disorders. REVIEW OF SYSTEMS: As indicated above; otherwise, a 10-point system was reviewed and negative. CURRENT MEDICATIONS: List was reviewed. Please see the MRAD. ALLERGIES: TO MULTIPLE ANTIBIOTICS INCLUDING SULFA, PENICILLIN, AND TETRACYCLINE. SHE IS ALSO INTOLERANT TO NONSTEROIDALS. PHYSICAL EXAMINATION: GENERAL: The patient appeared to be older than stated age. She was in no respiratory distress. VITAL SIGNS: Stable. O2 saturation on room air 91%. HEENT: Eyes: The sclerae were nonicteric. NECK: Jugular venous distention was not elevated. No lymphadenopathy. CHEST: Full expansion. LUNGS: Poor airway flow with some scattered rhonchi. CARDIOVASCULAR: Regular rate and rhythm with S1 and S2. No S3. ABDOMEN: Soft, nontender, nondistended. EXTREMITIES: No clubbing, cyanosis or edema. NEUROLOGIC: The patient was awake, alert, following commands. A detailed neuro exam was not performed. LABORATORY AND IMAGING DATA: Labs were reviewed. White count was normal. Hemoglobin and hematocrit were noted. Electrolytes were noted. Chest x-ray: No acute cardiopulmonary process. IMPRESSION: 1. Acute respiratory distress secondary to acute exacerbation of chronic obstructive pulmonary disease. 2. Acute exacerbation of chronic obstructive pulmonary disease. 3. Acute nonspecific bronchitis. 4. Tobacco dependence. 5. Depression. PLAN: 1. Concur with current medical management including steroids and antibiotics for the acute nonspecific bronchitis. 2. Possible discharge in the a.m. on tapering prednisone and doxycycline. 3. The patient is instructed on the importance of discontinuing tobacco use. 4. Follow up with PCP, she was given a list of possible primary care doctors to choose from. I do appreciate the privilege in sharing in the patient's care. WILLIAM GELLER MD DR: ELVIRA/jose JOB#: [id number] / [id number]
[2017-03-24] MEDS ORDERED: predniSONE 20 MG TABLET PO SCH (09:00)
--- NOTE | 2017-03-25 03:23 | DS ---
DATE OF DISCHARGE: 03/23/2017 CHIEF COMPLAINT: Shortness of breath. HOSPITAL COURSE: The patient is a 56-year-old woman with suspected COPD, who presented with severe shortness of breath. She was found to have bronchitis with copious sputum, which was cultured. Unfortunately, results are not back at time of discharge. She was empirically started on azithromycin and ceftriaxone. For suspected COPD, she was started on steroids, which were switched from IV to p.o. Nebs and O2 were administered. Pulmonary consult was obtained. She was felt to be mildly septic secondary to positive lactate, which improved. By the following day her clinical status was much improved and she was deemed appropriate for discharge to home on antibiotics, follow up with Pulmonary. PHYSICAL EXAMINATION: Please refer to note from same day. DISCHARGE DATE: 03/23/2017. DISCHARGE DIAGNOSIS: Bronchitis. DISCHARGE DISPOSITION: To home. DISCHARGE CONDITION: Improved. DISCHARGE MEDICATIONS: Please refer to MAR. DISCHARGE INSTRUCTIONS: The patient will follow up with her primary care physician in 1-[address] Curry from Pulmonary in 2-3 weeks. JAQUELIN OLMEDO MD DR: SANJAY/nts JOB#: [id number] / [id number] CHERIE
== END 2017-03-23 14:00 | disposition home or self-care (01) | DRG 871 ==
LOC: ER 17:57 → 5 NORTH 20:20 → ER 21:11
PROVIDERS: ADMIT Internal Medicine; ATTEND Internal Medicine
DX: A41.9 Sepsis, unspecified organism (principal); J18.9 Pneumonia, unspecified organism; J44.0 Chronic obstructive pulmonary disease with (acute) lower respiratory infection; J44.1 Chronic obstructive pulmonary disease with (acute) exacerbation; E03.9 Hypothyroidism, unspecified; F17.210 Nicotine dependence, cigarettes, uncomplicated; F32.9 Major depressive disorder, single episode, unspecified; M54.5 Low back pain; J20.9 Acute bronchitis, unspecified; I10 Essential (primary) hypertension; Z88.6 Allergy status to analgesic agent; Z88.1 Allergy status to other antibiotic agents; Z88.0 Allergy status to penicillin; Z88.2 Allergy status to sulfonamides
CPT/HCPCS: 36415; 71010; 80048; 80076; 81001; 82553; 83605; 83690; 83735; 83880; 84484; 85027; 87040; 93005; 94250; 94640; 94760; 96361; 96374; 96375; J0456; J0696; J2405; J2920; J7030; J7512; J7620; 99285-25

== ENCOUNTER 2017-09-15 14:58 | Emergency (ER) | payer MEDICARE ==
[~2017-09-15 14:58] MED LIST changes: +AZIT250T6 PO; +CYCL10TA2 PO; +ERYT1OIN6 OP; +GUAI5SYR PO; +LEVO75TA PO; +PERM60CR12 TP; +PRED-220 PO; +PRED20TA PO
[2017-09-15 15:09] VITALS: BP 129/72
[2017-09-15] MEDS ORDERED: fentaNYL PF VIAL 100 MCG/2 ML VIAL IV PRN (15:15)
[2017-09-15] MEDS ORDERED: ACETAMINOPHEN 325 MG TABLET. PO ONE (15:15)
--- NOTE | 2017-09-15 15:37 | PHYS DOC ---
Past Medical History Past Medical History: Anxiety, Depression, Hypertension, Hypothyroid, Other Additional Past Medical Histor: BACK PAIN, PSYCHOSIS, MOOD DISORDER,PTSD Past Surgical History: Tubal ligation Alcohol Use: None Drug Use: Marijuana Adult General Chief Complaint Chief Complaint: LOWER EXT PAIN HPI HPI 56-year-old female with a history of chronic right knee pain presenting to the emergency department today with knee pain on both sides worse on the right that has been present for about 3 months. It is worsened over the past 2 days. It is a throbbing sensation that is nonradiating moderate worse with walking and she feels her knee "giving out". She reports having difficulty walking on her knee gives out including several falls. She denies hitting her head or any injuries from her falls. She denies neck pain back pain chest pain abdominal pain or pain elsewhere in her extremities. She denies any fevers or chills. She denies any new rashes. Review of systems is negative for chest pain shortness of breath fevers chills nausea or vomiting. All other review of systems is negative unless otherwise noted in history of present illness. ED course: 56-year-old female presenting to the emergency department with acute on chronic right knee pain. Upon arrival the patient's afebrile. Blood pressure within normal limits. Pulse mildly tachycardic at 106 likely secondary to pain. On examination the patient is anxious and appears to be in a [id number] amount of pain. Examination of the right knee shows pain with passive range of motion of the knee. Negative Shiloh's test. Negative Silvino's test. Normal anterior and posterior drawer test. The knee is similar in temperature to the contralateral knee. Neurovascularly intact distally including sensory and motor function of the right foot. 2 second cap refill. The remainder the exam shows no evidence of trauma. Nontender neck. The patient's left knee is also hurting her which is also chronic. Left knee has mild pain with passive range of motion. No specific tenderness to palpation. Neurovascularly intact distally. She states that her right knee hurts worse than her left. The remainder of extremities are nontender with normal range of motion. The patient was given Tylenol and fentanyl for her pain. On reexamination she is feeling better. She was able to ambulate in the emergency department. She was subsequent discharged home with oral pain medications to follow-up with her doctor in the next 1-2 days. They were to return if their symptoms worsened or if they were concerned for any reason. [id number] discharge instructions and return precautions were given. Patient's questions were answered to their satisfaction. Patient is comfortable plan. Review of Systems Review of Systems SEE ABOVE. Current Medications Current Medications Current Medications Medications (Trade) Dose Ordered Sig/Mario Start Time Stop Time Status Last Admin Dose Admin Acetaminophen (Tylenol) 650 mg 1X ONCE 09/15/17 15:15 09/15/17 15:16 DC Fentanyl Citrate (Fentanyl 2ml Vial) 25 mcg 1X PRN PRN 09/15/17 15:15 09/15/17 15:36 25 MCG Allergies Allergies Allergies Coded Allergies Type Severity Reaction Last Updated Verified NSAIDS (Non-Steroidal Anti-Inflamma Allergy Intermediate PASS OUT 10/30/16 Yes Penicillins Allergy Intermediate RASH 10/30/16 Yes Sulfa (Sulfonamide Antibiotics) Allergy Intermediate RASH 10/30/16 Yes Tetracyclines Allergy Intermediate RASH 10/30/16 Yes aspirin Allergy Intermediate PASS OUT 10/30/16 Yes Physical Exam Physical Exam SEE ABOVE Constitutional: Well developed, well nourished, no acute distress, non-toxic appearance. [] HENT: Normocephalic, atraumatic, bilateral external ears normal, oropharynx moist, no oral exudates, nose normal. Eyes: PERRLA, EOMI, conjunctiva normal, no discharge. [] Neck: Normal range of motion, no tenderness, supple, no stridor. [] Cardiovascular:Heart rate regular rhythm, no murmur Lungs & Thorax: Bilateral breath sounds clear to auscultation [] Abdomen: Bowel sounds normal, soft, no tenderness, no masses, no pulsatile masses. Skin: Warm, dry, no erythema, no rash. [] Back: No tenderness, no CVA tenderness. [] Extremities: SEE ABOVE Neurologic: Alert and oriented X 3, normal motor function, normal sensory function, no focal deficits noted. [] Psychologic: Affect normal, judgement normal, mood normal. Current Patient Data Vital Signs Vital Signs Date Time Temp Pulse Resp B/P (MAP) Pulse Ox O2 Delivery O2 Flow Rate FiO2 09/15/17 15:09 98.0 106 22 96 Room Air 98.0 EKG EKG [] Radiology/Procedures Radiology/Procedures [] Course & Med Decision Making Course & Med Decision Making Pertinent Labs and Imaging studies reviewed. (See chart for details) [] Dragon Disclaimer Dragon Disclaimer This electronic medical record was generated, in whole or in part, using a voice recognition dictation system. Departure Departure Impression: Primary Impression: Right knee pain Additional Impression: Left knee pain Disposition: 01 HOME, SELF-CARE Condition: STABLE Referrals: NO PCP (PCP) ZOHAIB FARNSWORTH MD Patient Instructions: Knee Pain Additional Instructions: Thank you for allowing us to participate in your care today. Followup with your primary care physician in 3 days if your symptoms do not improve. Also provided our orthopedic surgeons number and contact information for you to follow-up within the next 7-14 days. Call your Primary Doctor tomorrow and inform them of your visit today. If you do not have a primary care provider you can ask for a list of our primary care providers. Return to the emergency department you have any new or concerning findings. This should be evaluated by the primary care physician and any necessary consulting services for continued management within a few days after discharge. Return to emergency room if you have any new or concerning symptoms including but not limited to fever, chills, nausea, vomiting, intractable pain, any new rashes, chest pain, shortness of air, uncontrolled bleeding, difficulty breathing, and/or vision loss. You may have been prescribed medication that can change in your level of thinking and ability to operate machinery. These medications include hydrocodone and Ativan. Also, Benadryl has been known to do this as well. Be sure to check with your pharmacist and ask if the medications you've prescribed can affect your level of consciousness. I recommend not operating heavy machinery or driving while on medication such as these. Scripts Hydrocodone Bit/Acetaminophen (HYDROCODONE-APAP 5-325 ) 1 Each Tablet 1 TAB PO PRN Q8HRS Y for SEVERE PAIN, #8 TAB 0 Refills Prov: AYO BRICENO MD 09/15/17 Problem Qualifiers AYO BRICENO MD Sep 15, 2017 15:37
--- NOTE | 2017-09-15 16:49 | RAD ---
Bilateral knees, 09/15/2017: History: Fall, pain On the right there is moderate narrowing of the medial compartment of the knee joint with moderate marginal spurring. There is moderate spurring at the patellofemoral articulation. No fracture or dislocation is identified. There appears to be a moderate sized knee joint effusion. Moderate subcutaneous edema is present anteriorly. On the left, there is mild spurring at the patellofemoral articulation. The knee joint spaces are well preserved. No fracture or dislocation is identified. There is moderate subcutaneous edema. IMPRESSION: 1. Moderate degenerative change at the right knee with a moderate sized knee joint effusion. 2. Mild degenerative change at the left knee. 3. No acute bony abnormality is detected.
[2017-09-15] MEDS ORDERED: HYDR-2758 PO (17:01)
== END 2017-09-15 17:41 | disposition home or self-care (01) ==
LOC: ER 14:58
DX: M25.561 Pain in right knee (principal); M25.562 Pain in left knee; R26.2 Difficulty in walking, not elsewhere classified; F41.9 Anxiety disorder, unspecified; F32.9 Major depressive disorder, single episode, unspecified; I10 Essential (primary) hypertension; E03.9 Hypothyroidism, unspecified; F43.10 Post-traumatic stress disorder, unspecified; G89.29 Other chronic pain; Z88.2 Allergy status to sulfonamides; Z88.0 Allergy status to penicillin; Z88.6 Allergy status to analgesic agent; Z88.1 Allergy status to other antibiotic agents
CPT/HCPCS: 73562; 96374; 99284; J3010

== ENCOUNTER 2017-11-14 09:14 | Emergency (ER) | payer MEDICARE ==
[2017-11-14] MEDS: traMADol 50 MG TABLET PO ×2 (09:45)
== END 2017-11-14 09:46 | disposition home or self-care (01) ==
LOC: ER 09:14
DX: M25.561 Pain in right knee (principal); G89.29 Other chronic pain; I10 Essential (primary) hypertension; E03.9 Hypothyroidism, unspecified; F43.10 Post-traumatic stress disorder, unspecified; F12.10 Cannabis abuse, uncomplicated; Z88.0 Allergy status to penicillin; Z88.2 Allergy status to sulfonamides; Z88.1 Allergy status to other antibiotic agents; Z88.6 Allergy status to analgesic agent
CPT/HCPCS: 99283

== ENCOUNTER 2018-04-18 17:42 | Emergency (ER) | payer MEDICARE | END 2018-04-18 19:30 | disposition home or self-care (01) | LOC: ER 17:42 | DX: S01.01XD Laceration without foreign body of scalp, subsequent encounter (principal); I10 Essential (primary) hypertension; F31.9 Bipolar disorder, unspecified; E03.9 Hypothyroidism, unspecified; F12.10 Cannabis abuse, uncomplicated; Z86.73 Personal history of transient ischemic attack (TIA), and cerebral infarction without residual deficits; Z88.0 Allergy status to penicillin; Z88.1 Allergy status to other antibiotic agents; Z88.2 Allergy status to sulfonamides; Z88.6 Allergy status to analgesic agent; X58.XXXD Exposure to other specified factors, subsequent encounter | CPT/HCPCS: 99281 ==

== ENCOUNTER 2019-03-28 13:05 | Emergency (ER) | payer MEDICARE ==
[~2019-03-28] VITALS: Ht 160 cm; Wt 86.2 kg
[~2019-03-28 13:05] MED LIST changes: +ATOR40TA59 PO; +CLOP75TA PO; +DIAZ5TAB4 PO; +GABA600T7 PO; +HYDR-2761 PO; +LEVO75TA5 PO; +LURA80TA PO; +MIDO5TAB PO; +OXCA300T19 PO; +TRAM-48 PO; +VENL225T PO
[2019-03-28] MEDS ORDERED: methylPREDNISolone SOD SUCC PF 125 MG/2 ML VIAL. IV ONE (14:00)
[2019-03-28] MEDS ORDERED: IPRATRPIUM/ALBUTEROL 0.5/2.5MG 3 ML NEBU. NEB ONE (14:00)
--- NOTE | 2019-03-28 14:15 | PHYS DOC ---
Past Medical History Past Medical History: Anxiety, Bipolar, CVA, Depression, Hypertension, Hypothyroid, Other Additional Past Medical Histor: BACK PAIN, PSYCHOSIS, MOOD DISORDER,PTSD Past Surgical History: Tubal ligation Additional Past Surgical Histo: BACK AND NECK SURGERY, HEART CATH Smoking: Cigarettes Alcohol Use: Occasionally Drug Use: Marijuana Adult General Chief Complaint Chief Complaint: MECHANICAL FALL HPI HPI Patient is a 58 year old female who presents with multiple falls in the last 3 weeks. The patient states that she has been getting dizzy before she falls. The patient also states that she's been having intermittent midsternal chest pain. The patient has bruising to her right orbital, left and right forearm, right knee, left shoulder, right forearm. The patient rates her pain as 8 out of 10 and describes pain as throbbing, sharp. On Plavix, and Eloquis due to past history of stroke. Review of Systems Review of Systems Constitutional: Denies fever or chills [] Eyes: Denies change in visual acuity, redness, or eye pain [] HENT: Denies nasal congestion or sore throat [] Respiratory: Denies cough but reports shortness of breath [] Cardiovascular: Reports intermittent mid-sternal chest pain. GI: Denies abdominal pain, nausea, vomiting, bloody stools or diarrhea [] : Denies dysuria or hematuria [] Musculoskeletal: Denies back pain or joint pain [] Integument: Denies rash or skin lesions [] Neurologic: Reports dizziness. Denies headache, focal weakness or sensory changes [] Endocrine: Denies polyuria or polydipsia [] Complete systems were reviewed and found to be within normal limits, except as documented in this note. Current Medications Current Medications Current Medications Medications (Trade) Dose Ordered Sig/Mario Start Time Stop Time Status Last Admin Dose Admin Albuterol/ Ipratropium (Duoneb) 3 ml 1X ONCE 03/28/19 14:00 03/28/19 14:01 DC 03/28/19 14:30 3 ML Methylprednisolone Sodium Succinate (SOLU-Medrol 125MG VIAL) 125 mg 1X ONCE 03/28/19 14:00 03/28/19 14:01 DC 03/28/19 14:39 125 MG Potassium Chloride (Klor-Con) 80 meq 1X ONCE 03/28/19 16:00 03/28/19 16:01 Allergies Allergies Allergies Coded Allergies Type Severity Reaction Last Updated Verified NSAIDS (Non-Steroidal Anti-Inflamma Allergy Intermediate PASS OUT 10/30/16 Yes Penicillins Allergy Intermediate RASH 10/30/16 Yes Sulfa (Sulfonamide Antibiotics) Allergy Intermediate RASH 10/30/16 Yes Tetracyclines Allergy Intermediate RASH 10/30/16 Yes aspirin Allergy Intermediate PASS OUT 10/30/16 Yes Physical Exam Physical Exam Constitutional: Well developed, well nourished, no acute distress, non-toxic appearance. [] HENT: Normocephalic, traumatic to R orbital, bilateral external ears normal, oropharynx moist, no oral exudates, nose normal. [] Eyes: PERRLA, EOMI, conjunctiva normal, no discharge. [] Neck: Normal range of motion, no tenderness, supple, no stridor. [] Cardiovascular:Heart rate regular rhythm, no murmur [] Lungs & Thorax: Bilateral breath sounds wheezing diffusely. Abdomen: Bowel sounds normal, soft, no tenderness, no masses, no pulsatile masses. [] Skin: Warm, dry, no erythema, no rash. bruising to knee, forearms, R orbital. Back: No tenderness, no CVA tenderness. [] Extremities: Tenderness to bilateral forearms, R knee, L shoulder, no cyanosis, no clubbing, ROM intact, no edema. [] Neurologic: Alert and oriented X 3, normal motor function, normal sensory function, no focal deficits noted. [] Psychologic: Affect normal, judgement normal, mood normal. [] Current Patient Data Vital Signs Vital Signs Date Time Temp Pulse Resp B/P (MAP) Pulse Ox O2 Delivery O2 Flow Rate FiO2 03/28/19 14:33 98 Room Air 03/28/19 13:08 98.2 85 14 124/76 (92) 98.2 Lab Values Laboratory Tests Test 03/28/19 14:40 White Blood Count 8.0 x10^3/uL (4.0-11.0) Red Blood Count 4.21 x10^6/uL (3.50-5.40) Hemoglobin 12.2 g/dL (12.0-15.5) Hematocrit 36.4 % (36.0-47.0) Mean Corpuscular Volume 86 fL (79-100) Mean Corpuscular Hemoglobin 29 pg (25-35) Mean Corpuscular Hemoglobin Concent 33 g/dL (31-37) Red Cell Distribution Width 18.0 % (11.5-14.5) H Platelet Count 325 x10^3/uL (140-400) Neutrophils (%) (Auto) 56 % (31-73) Lymphocytes (%) (Auto) 32 % (24-48) Monocytes (%) (Auto) 8 % (0-9) Eosinophils (%) (Auto) 3 % (0-3) Basophils (%) (Auto) 1 % (0-3) Neutrophils # (Auto) 4.5 x10^3uL (1.8-7.7) Lymphocytes # (Auto) 2.5 x10^3/uL (1.0-4.8) Monocytes # (Auto) 0.6 x10^3/uL (0.0-1.1) Eosinophils # (Auto) 0.3 x10^3/uL (0.0-0.7) Basophils # (Auto) 0.1 x10^3/uL (0.0-0.2) Sodium Level 143 mmol/L (136-145) Potassium Level 2.8 mmol/L (3.5-5.1) *L Chloride Level 104 mmol/L (98-107) Carbon Dioxide Level 31 mmol/L (21-32) Anion Gap 8 (6-14) Blood Urea Nitrogen 13 mg/dL (7-20) Creatinine 0.6 mg/dL (0.6-1.0) Estimated GFR (Cockcroft-Gault) 102.7 BUN/Creatinine Ratio 22 (6-20) H Glucose Level 70 mg/dL (70-99) Calcium Level 9.0 mg/dL (8.5-10.1) Total Bilirubin 0.6 mg/dL (0.2-1.0) Aspartate Amino Transferase (AST) 19 U/L (15-37) Alanine Aminotransferase (ALT) 25 U/L (14-59) Alkaline Phosphatase 116 U/L (46-116) Troponin I Quantitative < 0.017 ng/mL (0.000-0.055) Total Protein 7.5 g/dL (6.4-8.2) Albumin 3.4 g/dL (3.4-5.0) Albumin/Globulin Ratio 0.8 (1.0-1.7) L Laboratory Tests 03/28/19 14:40 Laboratory Tests 03/28/19 14:40 EKG EKG EKG interpreted by Dr. Ryan Sinus at rate of 77, No STEMI.[] Radiology/Procedures Radiology/Procedures []PATIENT: KAISER HANLEYACCOUNT: [id number]#: [id number] : 1960 LOCATION: ER AGE: 58 SEX: F EXAM STATUS: REG ER ORD. PHYSICIAN: VARUN YOUNGBLOOD APRN REASON: fall, headache, bruising to face PROCEDURE: CT HEAD AND MAXILLOFACIAL WO CT head and maxillofacial region without contrast History: Fall, headache, bruising to the face Technique: Noncontrast CT imaging was performed of the head and maxillofacial region. Multiplanar reconstruction images are submitted. Exposure: One or more of the following individualized dose reduction techniques were utilized for this examination: 1. Automated exposure control 2. Adjustment of the mA and/or kV according to patient size 3. Use of iterative reconstruction technique. Head CT Comparison: May 31, 2018 Findings: There is no evidence of acute intracranial hemorrhage. There is again large old left basal ganglia infarct extending to [place] radiata also extent to the left frontal white matter and near the left frontal cortex. There is again ex vacuo dilatation of the left lateral ventricle, ventricular size otherwise within normal limits. There is other mild ill-defined low-density such as of the bilateral frontal white matter and left parietal white matter as seen previously. There is no new intra-axial mass effect. There is no significant midline shift. There is some density in the right mastoid air cells as seen previously. Impression: 1. No acute intracranial abnormality is identified. There is again large old infarct of the left basal ganglia extending to newby radiata and near the left frontal cortex. There is again some other ill-defined low-density of the supratentorial parenchyma which may be due to chronic microvascular ischemic disease. Maxillofacial CT Comparison: February 17, 2017 Findings: There are no air-fluid levels of the paranasal sinuses. No acute maxillofacial fracture is identified. There is multilevel cervical facet degenerative change. There is also uncovertebral degenerative change of the visualized cervical spine. There is multilevel neural foramina compromise of visualized superior cervical spine. There is dental caries such as of residual second and fourth teeth counting from posteriorly of the left maxilla. There is erosion of the third and fourth left mandibular teeth when counting from posteriorly. Impression: 1. No acute maxillofacial fracture is identified. 2. There is multilevel facet degenerative change of visualized superior cervical spine contributing to neural foramina compromise. 3. There is dental disease Electronically signed by: Bebeto Hernández MD (03/28/2019 2:52 PM) [facility] PATIENT: KAISER HANLEY ACCOUNT: [id number] : 1960 LOCATION: ER AGE: 58 SEX: F EXAM STATUS: REG ER ORD. PHYSICIAN: VARUN YOUNGBLOOD APRN REASON: sob PROCEDURE: KNEE RIGHT 3V EXAM: AP, oblique and lateral views of the right DATE: 03/28/2019 1:46 PM INDICATION: 09/15/2017 COMPARISON: No Prior FINDINGS: There is no evidence for acute fracture or dislocation. Right knee joint osteophytes arthritis with moderate medial compartment joint space narrowing and tricompartmental osteophytes. Small right knee joint effusion. IMPRESSION: 1. No evidence of acute fracture or dislocation. If there is persistent clinical concern for fracture, follow-up radiographs in 10-14 days is recommended. 2. Right knee joint osteoarthritis Electronically signed by: Darion Clark MD (03/28/2019 2:36 PM) [id number] PATIENT: KAISER HANLEY ACCOUNT: [id number] : 1960 LOCATION: ER AGE: 58 SEX: F EXAM STATUS: REG ER ORD. PHYSICIAN: VARUN YOUNGBLOOD APRN REASON: sob PROCEDURE: FOREARM BILAT EXAM: AP and lateral views of both forearms DATE: 03/28/2019 1:46 PM INDICATION: Bilateral forearm pain. COMPARISON: No Prior FINDINGS/ IMPRESSION: Equivocal lucency through the right radial head with cortical offset may represent fracture or proliferative changes from degenerative change. This can be further assessed by dedicated right elbow radiographs. No other fracture or dislocation of either forearm. Electronically signed by: Darion Clark MD (03/28/2019 2:39 PM) [id number] PATIENT: KAISER HANLEY ACCOUNT: [id number] : 1960 LOCATION: ER AGE: 58 SEX: F EXAM STATUS: REG ER ORD. PHYSICIAN: VARUN YOUNGBLOOD APRN REASON: sob PROCEDURE: PORTABLE CHEST 1V PORTABLE CHEST 1V History: Shortness of breath Comparison: May 31, 2018 Findings: Single view of the chest is submitted. There is no infiltrate, pneumothorax, or effusion. The pericardial cardiac silhouette is within normal limits in size. There are again some calcified right hilar nodes. Impression: 1. There is no radiographic evidence of acute cardiopulmonary disease. Electronically signed by: Bebeto Hernández MD (03/28/2019 2:37 PM) [id number] PATIENT: KAISER HANLEY ACCOUNT: [id number] : 1960 LOCATION: ER AGE: 58 SEX: F EXAM STATUS: REG ER ORD. PHYSICIAN: VARUN YOUNGBLOOD APRN REASON: tenderness, fall PROCEDURE: SHOULDER 2+V LEFT EXAM: 3 views left shoulder DATE: 03/28/2019 2:06 PM INDICATION: Left shoulder pain, tenderness COMPARISON: No Prior FINDINGS: No evidence of acute fracture or dislocation. AC joint and glenohumeral joint degenerative changes are seen. Humeral head is not high riding. IMPRESSION: No evidence for acute fracture or dislocation. Electronically signed by: Darion Clark MD (03/28/2019 2:37 PM) [id number] PATIENT: KAISER HANLEY ACCOUNT: [id number] : 1960 LOCATION: ER AGE: 58 SEX: F EXAM STATUS: REG ER ORD. PHYSICIAN: VARUN YOUNGBLOOD APRN REASON: Trauma, fall PROCEDURE: ELBOW RIGHT 3V EXAM: 3 views right elbow DATE: 03/28/2019 3:30 PM INDICATION: Trauma, fall COMPARISON: No Prior FINDINGS: No elbow joint effusion. Posterior changes are seen at the radial head and neck, olecranon and distal humerus. No acute fracture or dislocation. IMPRESSION: 1. No evidence of acute fracture or dislocation. 2. Right elbow degenerative changes. Electronically signed by: Darion Clark MD (03/28/2019 3:48 PM) [id number] Course & Med Decision Making Course & Med Decision Making Pertinent Labs and Imaging studies reviewed. (See chart for details) Will give breathing treatment, imaging, duoneb, x-ray, and labs/ekg. Labs show a potassium of 2.8. Imaging shows no fractures however there is a questionable read regarding the R forearm and R elbow images are recommended. Will order R elbow. All imaging is negative. Labs are unremarkable with exception of potassium. Will order potassium. Recommended due to dizziness and intermittent chest pain the patient be admitted to hospital. Patient declined. I advised her of the risks of not being fully worked up for cardiac issues. The patient verbalized the risks that include . Will have her leave against medical advice. Dragon Disclaimer Dragon Disclaimer This electronic medical record was generated, in whole or in part, using a voice recognition dictation system. Departure Departure Impression: Primary Impression: Falls Additional Impressions: Chest pain Dizziness Disposition: 07 AGAINST MEDICAL ADVICE Condition: STABLE Referrals: NO PCP (PCP) The HEART Score for CP Pts HEART Score for Chest Pain: HEART Score for Chest Pain Response (Comments) Value History Moderately Suspicious 1 ECG Normal 0 Age >45 - < 65 1 Risk Factors >3 Risk Factors or Hx CAD 2 Troponin < Normal Limit 0 Total 4 Risk Factors: Risk Factors: DM, Current or recent (<one month) smoker, HTN, HLP, family histo ry of CAD, obesity. Risk Scores: Score 0 - 3: 2.5% MACE over next 6 weeks - Discharge Home Score 4 - 6: 20.3% MACE over next 6 weeks - Admit for Clinical Observation Score 7 - 10: 72.7% MACE over next 6 weeks - Early Invasive Strategies Problem Qualifiers Primary Impression: Falls Encounter type: initial encounter Qualified Codes: W19.XXXA - Unspecified fall, initial encounter Additional Impressions: Chest pain Chest pain type: unspecified Qualified Codes: R07.9 - Chest pain, unspecified VARUN YOUNGBLOOD APRN Mar 28, 2019 14:15
--- NOTE | 2019-03-28 14:39 | RAD ---
EXAM: 3 views left shoulder DATE: 03/28/2019 2:06 PM INDICATION: Left shoulder pain, tenderness COMPARISON: No Prior FINDINGS: No evidence of acute fracture or dislocation. AC joint and glenohumeral joint degenerative changes are seen. Humeral head is not high riding. IMPRESSION: No evidence for acute fracture or dislocation. Electronically signed by: Darion Clark MD (03/28/2019 2:37 PM) [id number]
--- NOTE | 2019-03-28 14:39 | RAD ---
EXAM: AP, oblique and lateral views of the right DATE: 03/28/2019 1:46 PM INDICATION: 09/15/2017 COMPARISON: No Prior FINDINGS: There is no evidence for acute fracture or dislocation. Right knee joint osteophytes arthritis with moderate medial compartment joint space narrowing and tricompartmental osteophytes. Small right knee joint effusion. IMPRESSION: 1. No evidence of acute fracture or dislocation. If there is persistent clinical concern for fracture, follow-up radiographs in 10-14 days is recommended. 2. Right knee joint osteoarthritis Electronically signed by: Darion Clark MD (03/28/2019 2:36 PM) [id number]
--- NOTE | 2019-03-28 14:40 | RAD ---
PORTABLE CHEST 1V History: Shortness of breath Comparison: May 31, 2018 Findings: Single view of the chest is submitted. There is no infiltrate, pneumothorax, or effusion. The pericardial cardiac silhouette is within normal limits in size. There are again some calcified right hilar nodes. Impression: 1. There is no radiographic evidence of acute cardiopulmonary disease. Electronically signed by: Bebeto Hernández MD (03/28/2019 2:37 PM) [email or web address]
--- NOTE | 2019-03-28 14:41 | RAD ---
EXAM: AP and lateral views of both forearms DATE: 03/28/2019 1:46 PM INDICATION: Bilateral forearm pain. COMPARISON: No Prior FINDINGS/ IMPRESSION: Equivocal lucency through the right radial head with cortical offset may represent fracture or proliferative changes from degenerative change. This can be further assessed by dedicated right elbow radiographs. No other fracture or dislocation of either forearm. Electronically signed by: Darion Clark MD (03/28/2019 2:39 PM) [id number]
[2019-03-28 14:50] LABS: BASO # 0.1 x10^3/uL (0.0-0.2); BASO % 1 % (0-3); EOS # 0.3 x10^3/uL (0.0-0.7); EOS % 3 % (0-3); HEMATOCRIT 36.4 % (36.0-47.0); HEMOGLOBIN 12.2 g/dL (12.0-15.5); LYMPH # 2.5 x10^3/uL (1.0-4.8); LYMPH % 32 % (24-48); MEAN CORPUSCULAR HEMOGLOBIN 29 pg (25-35); MEAN CORPUSCULAR HGB CONC 33 g/dL (31-37); MEAN CORPUSCULAR VOLUME 86 fL (79-100); MONO # 0.6 x10^3/uL (0.0-1.1); MONO % 8 % (0-9); NEUT # 4.5 x10^3uL (1.8-7.7); NEUT % 56 % (31-73); PLATELET COUNT 325 x10^3/uL (140-400); RED BLOOD COUNT 4.21 x10^6/uL (3.50-5.40)
--- NOTE | 2019-03-28 14:55 | RAD ---
CT head and maxillofacial region without contrast History: Fall, headache, bruising to the face Technique: Noncontrast CT imaging was performed of the head and maxillofacial region. Multiplanar reconstruction images are submitted. Exposure: One or more of the following individualized dose reduction techniques were utilized for this examination: 1. Automated exposure control 2. Adjustment of the mA and/or kV according to patient size 3. Use of iterative reconstruction technique. Head CT Comparison: May 31, 2018 Findings: There is no evidence of acute intracranial hemorrhage. There is again large old left basal ganglia infarct extending to [place] radiata also extent to the left frontal white matter and near the left frontal cortex. There is again ex vacuo dilatation of the left lateral ventricle, ventricular size otherwise within normal limits. There is other mild ill-defined low-density such as of the bilateral frontal white matter and left parietal white matter as seen previously. There is no new intra-axial mass effect. There is no significant midline shift. There is some density in the right mastoid air cells as seen previously. Impression: 1. No acute intracranial abnormality is identified. There is again large old infarct of the left basal ganglia extending to [place] radiata and near the left frontal cortex. There is again some other ill-defined low-density of the supratentorial parenchyma which may be due to chronic microvascular ischemic disease. Maxillofacial CT Comparison: February 17, 2017 Findings: There are no air-fluid levels of the paranasal sinuses. No acute maxillofacial fracture is identified. There is multilevel cervical facet degenerative change. There is also uncovertebral degenerative change of the visualized cervical spine. There is multilevel neural foramina compromise of visualized superior cervical spine. There is dental caries such as of residual second and fourth teeth counting from posteriorly of the left maxilla. There is erosion of the third and fourth left mandibular teeth when counting from posteriorly. Impression: 1. No acute maxillofacial fracture is identified. 2. There is multilevel facet degenerative change of visualized superior cervical spine contributing to neural foramina compromise. 3. There is dental disease Electronically signed by: Bebeto Hernández MD (03/28/2019 2:52 PM) [place] [id number]
[2019-03-28 15:16] LABS: ALBUMIN 3.4 g/dL (3.4-5.0); ALBUMIN/GLOBULIN RATIO 0.8 (1.0-1.7); CREATININE 0.6 mg/dL (0.6-1.0); GFR 102.7; TOTAL BILIRUBIN 0.6 mg/dL (0.2-1.0); TOTAL PROTEIN 7.5 g/dL (6.4-8.2)
[2019-03-28 15:26] LABS: POTASSIUM 2.8 mmol/L (3.5-5.1)
--- NOTE | 2019-03-28 15:46 | EKG ---
[facility] [address] [place] [address] Test Date: 2019-03-28 Test Time: 14:52:03 Pat Name: KAISER HANLEY Department: Room: Gender: F Shearer Helper: : 1960 Requested By: VARUN YOUNGBLOOD Order Number: [id number] Reading MD: Measurements Intervals Dexter Rate: 77 P: 41 PA: 148 QRS: -20 QRSD: 92 T: 28 QT: 406 QTc: 461 Interpretive Statements SINUS RHYTHM LEFT ATRIAL ABNORMALITY LEFTWARD AXIS R-S TRANSITION ZONE IN V LEADS DISPLACED TO THE RIGHT ABNORMAL ECG RI6.01 No previous ECG available for comparison
--- NOTE | 2019-03-28 15:51 | RAD ---
EXAM: 3 views right elbow DATE: 03/28/2019 3:30 PM INDICATION: Trauma, fall COMPARISON: No Prior FINDINGS: No elbow joint effusion. Posterior changes are seen at the radial head and neck, olecranon and distal humerus. No acute fracture or dislocation. IMPRESSION: 1. No evidence of acute fracture or dislocation. 2. Right elbow degenerative changes. Electronically signed by: Darion Clark MD (03/28/2019 3:48 PM) [id number]
[2019-03-28] MEDS ORDERED: HYDROcodone/APAP 5/325MG 1 TAB TABLET PO ONE (16:00)
[2019-03-28] MEDS ORDERED: POTASSIUM CHLORIDE 20 MEQ TABLET.ER. PO ONE (16:00)
[2019-03-28 16:30] VITALS: BP 123/72
== END 2019-03-28 16:50 | disposition left against medical advice (07) ==
LOC: ER 13:05
DX: S05.11XA Contusion of eyeball and orbital tissues, right eye, initial encounter (principal); S80.01XA Contusion of right knee, initial encounter; S50.12XA Contusion of left forearm, initial encounter; S50.11XA Contusion of right forearm, initial encounter; S40.012A Contusion of left shoulder, initial encounter; R42 Dizziness and giddiness; R07.2 Precordial pain; F31.9 Bipolar disorder, unspecified; F41.9 Anxiety disorder, unspecified; Z86.73 Personal history of transient ischemic attack (TIA), and cerebral infarction without residual deficits; I10 Essential (primary) hypertension; E03.9 Hypothyroidism, unspecified; F17.210 Nicotine dependence, cigarettes, uncomplicated; Z88.0 Allergy status to penicillin; Z88.1 Allergy status to other antibiotic agents; Z88.2 Allergy status to sulfonamides; Z88.6 Allergy status to analgesic agent; W18.39XA Other fall on same level, initial encounter; Y93.89 Activity, other specified; Y92.89 Other specified places as the place of occurrence of the external cause; Y99.8 Other external cause status
CPT/HCPCS: 36415; 70450; 70486; 71045; 73030; 73080; 73090; 73562; 80053; 84484; 85025; 93005; 94640; 96374; 99285; J2930; J7620

== ENCOUNTER 2019-05-07 22:15 | Inpatient (IN) | payer MEDICARE ==
[~2019-05-07] VITALS: Ht 162.6 cm; Wt 91.8 kg
[2019-05-07] MEDS ORDERED: IV NORMAL SALINE 500ML BAG 500 ML IV ONE (23:00)
[2019-05-07] MEDS ORDERED: methylPREDNISolone SOD SUCC PF 125 MG/2 ML VIAL. IV ONE (23:00)
[2019-05-07] MEDS ORDERED: IPRATRPIUM/ALBUTEROL 0.5/2.5MG 3 ML NEBU. NEB ONE (23:00)
[2019-05-07 23:01] LABS: BASO # 0.1 x10^3/uL (0.0-0.2); BASO % 1 % (0-3); EOS # 0.3 x10^3/uL (0.0-0.7); EOS % 3 % (0-3); HEMATOCRIT 34.3 % (36.0-47.0); HEMOGLOBIN 11.4 g/dL (12.0-15.5); LYMPH # 3.1 x10^3/uL (1.0-4.8); LYMPH % 29 % (24-48); MEAN CORPUSCULAR HEMOGLOBIN 30 pg (25-35); MEAN CORPUSCULAR HGB CONC 33 g/dL (31-37); MEAN CORPUSCULAR VOLUME 92 fL (79-100); MONO # 0.8 x10^3/uL (0.0-1.1); MONO % 7 % (0-9); NEUT # 6.5 x10^3/uL (1.8-7.7); NEUT % 60 % (31-73); PLATELET COUNT 249 x10^3/uL (140-400); RED BLOOD COUNT 3.74 x10^6/uL (3.50-5.40); RED CELL DISTRIBUTION WIDTH 19.1 % (11.5-14.5); WHITE BLOOD COUNT 10.9 x10^3/uL (4.0-11.0)
[2019-05-07 23:05] LABS: PROTHROMBIN TIME PATIENT 12.6 SEC (11.7-14.0)
--- NOTE | 2019-05-07 23:08 | PHYS DOC ---
Past Medical History Past Medical History: Anxiety, Bipolar, CVA, Depression, Hypertension, Hypothyroid, Other Additional Past Medical Histor: BACK PAIN, PSYCHOSIS, MOOD DISORDER,PTSD (APOLLO BOWLES APRN) Past Surgical History: Tubal ligation Additional Past Surgical Histo: BACK AND NECK SURGERY, HEART CATH (APOLLO BOWLES APRN) Alcohol Use: Occasionally Drug Use: Marijuana (APOLLO BOWLES APRN) Adult General Chief Complaint Chief Complaint: LOWER EXTREMITY SWELLING HPI HPI 58 y/o female presents to ER via EMS for c/o bilat. LE swelling/pain. Patient on arrival has slurred speech reporting she has had 2 shots of vodka although has strong alcohol odor on her presents. Patient denies any illicit drug use. Patient states she has had nonproductive cough, nausea or vomiting, and generalized fatigue. Patient denies chest pain or palpitations. She reports she takes Plavix for prior DVT and states she has had a CVA in the past. Patient states she has been out of her thyroid medication so uncertain if patient has been taking her daily Plavix. Pt denies any falls, headache or dizziness, or vision changes. (APOLLO BOWLES APRN) Review of Systems Review of Systems Constitutional: Denies fever or chills. Reports generalized fatigue/weakness Eyes: Denies change in visual acuity, redness, or eye pain [] HENT: Denies nasal congestion or sore throat [] Respiratory: Reports cough/SOA Cardiovascular: Denies CP/palpitations GI: Denies abdominal pain, bloody stools or diarrhea. Reports N/V- 2 episodes prior to drinking alcohol tonight : Denies dysuria or hematuria [] Musculoskeletal: Denies back/neck pain. Reports bilat. LE swelling/tightness/pain Integument: Denies rash or skin lesions [] Neurologic: Denies headache, focal weakness or sensory changes. Denies dizziness Endocrine: Denies polyuria or polydipsia [] All other systems were reviewed and found to be within normal limits, except as documented in this note. (APOLLO BOWLES APRN) Current Medications Current Medications Current Medications Medications (Trade) Dose Ordered Sig/Mario Start Time Stop Time Status Last Admin Dose Admin Albuterol/ Ipratropium (Duoneb) 3 ml 1X ONCE 05/07/19 23:00 05/07/19 23:01 DC 05/07/19 22:48 3 ML Methylprednisolone Sodium Succinate (SOLU-Medrol 125MG VIAL) 125 mg 1X ONCE 05/07/19 23:00 05/07/19 23:01 DC 05/07/19 23:00 125 MG Sodium Chloride 500 ml @ 500 mls/hr 1X ONCE 05/07/19 23:00 05/07/19 23:59 DC 05/07/19 23:00 500 MLS/HR (VARUN DÍAZ DO) Allergies Allergies Allergies Coded Allergies Type Severity Reaction Last Updated Verified NSAIDS (Non-Steroidal Anti-Inflamma Allergy Intermediate PASS OUT 10/30/16 Yes Penicillins Allergy Intermediate RASH 10/30/16 Yes Sulfa (Sulfonamide Antibiotics) Allergy Intermediate RASH 10/30/16 Yes Tetracyclines Allergy Intermediate RASH 10/30/16 Yes aspirin Allergy Intermediate PASS OUT 10/30/16 Yes (VARUN DÍAZ DO) Physical Exam Physical Exam Constitutional: Well developed, well nourished, no acute distress, non-toxic appearance. Unkempt appearance. Strong alcohol odor. Slurred speech but is understandable. Fatigued appearance HENT: Normocephalic, atraumatic, mucous membranes pink/dry, nose normal. [] Eyes: 3mm PERRLA, no nystagmus, conjunctiva normal, no discharge. [] Neck: Normal range of motion, no tenderness, supple, no stridor. [] Cardiovascular: Heart rate regular rhythm, no murmur [] Lungs & Thorax: Bilateral upper expiratory wheezing- diminished in bases. Resp. equal/nonlabored Abdomen: Bowel sounds normal, soft, no tenderness/distention, no masses, no pulsatile masses. [] Skin: Warm, dry, no erythema, no rash. [] Back: No tenderness, no CVA tenderness. [] Extremities: No cyanosis, no clubbing, ROM intact. 2+ bilat. dorsalis pedis/posterior tibial. 2-3+ bilat. nonpitting lower leg/pedal edema. Calf size symmetric. Tender on palp. bilat. lower legs/ankles/feet Neurologic: Alert and oriented X 3, normal motor function, normal sensory function, no focal deficits noted. [] Psychologic: Affect normal, judgement normal, mood normal- denies SI. [] (REFFITT,APOLLO Yoon APRN) Current Patient Data Vital Signs Vital Signs Date Time Temp Pulse Resp B/P (MAP) Pulse Ox O2 Delivery O2 Flow Rate FiO2 05/07/19 23:00 90 18 109/59 (76) 95 Room Air 05/07/19 22:15 99.2 99.2 (VARUN DÍAZ DO) Lab Values Laboratory Tests Test 05/07/19 22:45 White Blood Count 10.9 x10^3/uL (4.0-11.0) Red Blood Count 3.74 x10^6/uL (3.50-5.40) Hemoglobin 11.4 g/dL (12.0-15.5) L Hematocrit 34.3 % (36.0-47.0) L Mean Corpuscular Volume 92 fL (79-100) Mean Corpuscular Hemoglobin 30 pg (25-35) Mean Corpuscular Hemoglobin Concent 33 g/dL (31-37) Red Cell Distribution Width 19.1 % (11.5-14.5) H Platelet Count 249 x10^3/uL (140-400) Neutrophils (%) (Auto) 60 % (31-73) Lymphocytes (%) (Auto) 29 % (24-48) Monocytes (%) (Auto) 7 % (0-9) Eosinophils (%) (Auto) 3 % (0-3) Basophils (%) (Auto) 1 % (0-3) Neutrophils # (Auto) 6.5 x10^3/uL (1.8-7.7) Lymphocytes # (Auto) 3.1 x10^3/uL (1.0-4.8) Monocytes # (Auto) 0.8 x10^3/uL (0.0-1.1) Eosinophils # (Auto) 0.3 x10^3/uL (0.0-0.7) Basophils # (Auto) 0.1 x10^3/uL (0.0-0.2) Prothrombin Time 12.6 SEC (11.7-14.0) Prothrombin Time INR 1.0 (0.8-1.1) PTT 25 SEC (24-38) Laboratory Tests 05/07/19 22:45 (VARUN DÍAZ DO) Lab Values Laboratory Tests Test 05/07/19 22:45 White Blood Count 10.9 x10^3/uL (4.0-11.0) Red Blood Count 3.74 x10^6/uL (3.50-5.40) Hemoglobin 11.4 g/dL (12.0-15.5) L Hematocrit 34.3 % (36.0-47.0) L Mean Corpuscular Volume 92 fL (79-100) Mean Corpuscular Hemoglobin 30 pg (25-35) Mean Corpuscular Hemoglobin Concent 33 g/dL (31-37) Red Cell Distribution Width 19.1 % (11.5-14.5) H Platelet Count 249 x10^3/uL (140-400) Neutrophils (%) (Auto) 60 % (31-73) Lymphocytes (%) (Auto) 29 % (24-48) Monocytes (%) (Auto) 7 % (0-9) Eosinophils (%) (Auto) 3 % (0-3) Basophils (%) (Auto) 1 % (0-3) Neutrophils # (Auto) 6.5 x10^3/uL (1.8-7.7) Lymphocytes # (Auto) 3.1 x10^3/uL (1.0-4.8) Monocytes # (Auto) 0.8 x10^3/uL (0.0-1.1) Eosinophils # (Auto) 0.3 x10^3/uL (0.0-0.7) Basophils # (Auto) 0.1 x10^3/uL (0.0-0.2) Prothrombin Time 12.6 SEC (11.7-14.0) Prothrombin Time INR 1.0 (0.8-1.1) PTT 25 SEC (24-38) Laboratory Tests 05/07/19 22:45 (APOLLO BOWLES APRN) EKG EKG EKG obtained 05/07/19 at [address] Díaz Sinus rhythm Rate 90 No STEMI (APOLLO BOWLES APRN) Radiology/Procedures Radiology/Procedures [] (APOLLO BOWLES APRN) Radiology/Procedures PROCEDURE: VENOUS LOWER EXT BILATERAL Bilateral lower extremity venous Doppler ultrasound History: Bilateral leg swelling. History of DVT. Comparison: None. Procedure: Color flow Doppler, Doppler spectral analysis, and 2D images are obtained with and without compression in the area of the common femoral vein, superficial femoral vein - femoral vein junction, main femoral vein (superficial femoral vein) and popliteal vein. Veins of the proximal calf are also imaged. Findings: Due to swelling and body habitus, limited visualization of peroneal veins. There is normal color flow, augmentation, and compressibility of all visualized vein segments. No evidence of deep venous thrombus is present. IMPRESSION: No evidence of right or left lower extremity deep venous thrombosis. Electronically signed by: Ever Briggs MD (05/08/2019 12:13 AM) [facility] (VARUN DÍAZ DO) Course & Med Decision Making Course & Med Decision Making Pertinent Labs and Imaging studies reviewed. (See chart for details) Following initial exam discussion had with patient regarding admission for further evaluation and care-patient is agreeable with this plan. Patient's chest x-ray was reviewed by Dr. Díaz with no obvious acute findings when compared to an x-ray from March of this year. Patient received DuoNeb treatment and will be started on azithromycin for bronchitis. Patient's EKG with no acute ST elevation or STEMI and patient has denied any chest pain or palpitations. Patient will be admitted to hospitalist services for further care. (APOLLO BOWLES APRN) Dragon Disclaimer Dragon Disclaimer This electronic medical record was generated, in whole or in part, using a voice recognition dictation system. (APOLLO BOWLES APRN) Departure Departure Impression: Primary Impression: Weakness generalized Additional Impressions: ETOH abuse Swelling of lower extremity Disposition: ADMITTED INPATIENT Admitting Physician: JORY (APOLLO BOWLES APRN) Condition: STABLE Referrals: NO PCP (PCP) Attending Signature Attending Signature I have reviewed the PA/DAYCARE ASSISTANT's note and plan of care. I was available for consultation as needed during the patient's visit in the emergency department. I agree with the clinical impression, plan, and disposition. (VARUN DÍAZ DO) Problem Qualifiers APOLLO BOWLES APRN May 07, 2019 23:08 VARUN DÍAZ DO May 08, 2019 05:42
[2019-05-07] MEDS ORDERED: ONDANSETRON PF 4 MG/2 ML VIAL. IV PRN (23:15)
[2019-05-07] MEDS ORDERED: DOXYCYCLINE HYCLATE 100 MG TABLET PO ONE (23:15)
[2019-05-07 23:32] LABS: CALCIUM 8.2 mg/dL (8.5-10.1); CREATININE 1.1 mg/dL (0.6-1.0); POTASSIUM 3.5 mmol/L (3.5-5.1)
[2019-05-07 23:38] LABS: ALBUMIN 2.6 g/dL (3.4-5.0); ALBUMIN/GLOBULIN RATIO 0.7 (1.0-1.7); MAGNESIUM 1.5 mg/dL (1.8-2.4); TOTAL BILIRUBIN 0.1 mg/dL (0.2-1.0); TOTAL PROTEIN 6.2 g/dL (6.4-8.2)
[2019-05-07] MEDS ORDERED: AZITHROMYCIN 250 MG TABLET. PO ONE (23:45)
--- NOTE | 2019-05-08 00:16 | RAD ---
Bilateral lower extremity venous Doppler ultrasound History: Bilateral leg swelling. History of DVT. Comparison: None. Procedure: Color flow Doppler, Doppler spectral analysis, and 2D images are obtained with and without compression in the area of the common femoral vein, superficial femoral vein - femoral vein junction, main femoral vein (superficial femoral vein) and popliteal vein. Veins of the proximal calf are also imaged. Findings: Due to swelling and body habitus, limited visualization of peroneal veins. There is normal color flow, augmentation, and compressibility of all visualized vein segments. No evidence of deep venous thrombus is present. IMPRESSION: No evidence of right or left lower extremity deep venous thrombosis. Electronically signed by: Ever Briggs MD (05/08/2019 12:13 AM) [facility]
--- NOTE | 2019-05-08 00:35 | NUR ---
Pt. arrived on unit at 0035 by bed from ED. VSS, HR elevated. Pt. does not complain of pain except for chronic back pain. Admission questions and assessment done at this time. Call light within reach, bed in lowest position. Will continue to monitor.
[2019-05-08 00:40] VITALS: BP 115/64
[2019-05-08] MEDS: ACETAMINOPHEN 325 MG TABLET. PO PRN ×2 (01:17→13:32)
[2019-05-08 02:24] VITALS: BP 116/65
[2019-05-08] MEDS ORDERED: MAGNESIUM SULFATE 4GM 100 ML IV ONE (02:30)
[2019-05-08] MEDS ORDERED: DIAZ2TAB3 PO (03:10)
[2019-05-08] MEDS ORDERED: GABA600T7 PO (03:10)
--- NOTE | 2019-05-08 05:38 | EKG ---
[facility] [address] [place] [address] Test Date: 2019-05-07 Test Time: 22:37:47 Pat Name: KAISER HANLEY Department: Room: Gender: F Information Tech: : 1960 Requested By: APOLLO BOWLES Order Number: [id number] Reading MD: Measurements Intervals [place] Rate: 90 P: 157 NJ: 136 QRS: -164 QRSD: 86 T: 157 QT: 374 QTc: 462 Interpretive Statements SUPRAVENTRICULAR RHYTHM ABNORMAL RIGHT SUPERIOR AXIS DEVIATION S1,S2,S3 PATTERN CONSIDER RIGHT VENTRICULAR HYPERTROPHY T ABNORMALITY IN HIGH LATERAL LEADS ABNORMAL ECG RI6.01 Unconfirmed report No previous ECG available for comparison
[2019-05-08 06:34] LABS: BASO % 1 % (0-3); EOS % 0 % (0-3); HEMATOCRIT 35.7 % (36.0-47.0); HEMOGLOBIN 11.7 g/dL (12.0-15.5); LYMPH # 0.8 x10^3/uL (1.0-4.8); LYMPH % 13 % (24-48); MEAN CORPUSCULAR HEMOGLOBIN 30 pg (25-35); MEAN CORPUSCULAR HGB CONC 33 g/dL (31-37); MEAN CORPUSCULAR VOLUME 91 fL (79-100); MONO # 0.1 x10^3/uL (0.0-1.1); MONO % 1 % (0-9); NEUT # 5.4 x10^3/uL (1.8-7.7); NEUT % 86 % (31-73); PLATELET COUNT 255 x10^3/uL (140-400); RED BLOOD COUNT 3.94 x10^6/uL (3.50-5.40); RED CELL DISTRIBUTION WIDTH 18.4 % (11.5-14.5); WHITE BLOOD COUNT 6.3 x10^3/uL (4.0-11.0)
[2019-05-08 06:47] LABS: CALCIUM 8.4 mg/dL (8.5-10.1); CREATININE 0.8 mg/dL (0.6-1.0); GFR 73.7; POTASSIUM 3.9 mmol/L (3.5-5.1)
[2019-05-08 06:52] LABS: ALBUMIN 2.8 g/dL (3.4-5.0); ALBUMIN/GLOBULIN RATIO 0.7 (1.0-1.7); TOTAL BILIRUBIN 0.1 mg/dL (0.2-1.0); TOTAL PROTEIN 6.7 g/dL (6.4-8.2)
[2019-05-08 07:00] VITALS: BP 138/80
[2019-05-08] MEDS: IPRATRPIUM/ALBUTEROL 0.5/2.5MG 3 ML NEBU. NEB SCH ×2 (07:38→11:30)
[2019-05-08 07:55] LABS: % LYMPHS 6 % (24-48); % MONOS 1 % (0-10); % SEGS 93 % (35-66); ANISOCYTOSIS SLIGHT; PLT ESTIMATE ADEQUATE (ADEQUATE)
[2019-05-08] MEDS ORDERED: BUDESONIDE 0.5 MG/2 ML NEBU. NEB SCH (08:00)
--- NOTE | 2019-05-08 08:00 | PDOC1 ---
History and Physical Date of Admission Date of Admission DATE: 05/08/19 TIME: 08:00 History of Present Illness History of Present Illness Ms. concepcion, is a 58 y/o female admit with new dyspnea, cough and shortness of breath with new LE edemam She came to ER by EMS fo reg swelling and pain, had transient slurred speech, drank some EtOH yesterday, she reports feeling much better this AM. she has been compliant with all her meds, f/u with PCP and has a Neuro appt in june for known issues. Patient denies any illicit drug use. Patient states she has had nonproductive cough, with dyspnea. no nausea or vomiting, noted + generalized fatigue walks with a 4 pt walker at baseline. still smokes, [facility], Past Medical History Cardiovascular: No pertinent hx Pulmonary: Asthma, Bronchitis CENTRAL NERVOUS SYSTEM: CVA GI: No pertinent hx Heme/Onc: No pertinent hx Hepatobiliary: No pertinent hx Psych: No pertinent hx Musculoskeletal: low back pain Rheumatologic: No pertinent hx Renal/: No pertinent hx Endocrine: Hypothyroidism Past Surgical History Past Surgical History: No pertinent history Family History Family History: Family History Unknown Social History Smoke: 1 pack per day ALCOHOL: social Drugs: None Current Problem List Problem List Problems Medical Problems: (1) ETOH abuse Status: Acute (2) Swelling of lower extremity Status: Acute (3) Weakness generalized Status: Acute Current Medications Current Medications Current Medications Albuterol/ Ipratropium (Duoneb) 3 ml 1X ONCE NEB Last administered on 05/07/19at 22:48; Start 05/07/19 at 23:00; Stop 05/07/19 at 23:01; Status DC Methylprednisolone Sodium Succinate (SOLU-Medrol 125MG VIAL) 125 mg 1X ONCE IV Last administered on 05/07/19at 23:00; Start 05/07/19 at 23:00; Stop 05/07/19 at 23:01; Status DC Sodium Chloride 500 ml @ 500 mls/hr 1X ONCE IV Last administered on 05/07/19at 23:00; Start 05/07/19 at 23:00; Stop 05/07/19 at 23:59; Status DC Doxycycline Hyclate (Vibra-Tab) 100 mg 1X ONCE PO ; Start 05/07/19 at 23:15; Stop 05/07/19 at 23:23; Status DC Ondansetron HCl (Zofran) 4 mg PRN Q8HRS PRN IV NAUSEA/VOMITING 1ST CHOICE; Start 05/07/19 at 23:15; Stop 05/08/19 at 23:14 Acetaminophen (Tylenol) 650 mg PRN Q4HRS PRN PO FEVER Last administered on 05/08/19at 01:17; Start 05/07/19 at 23:15; Stop 05/08/19 at 23:14 Albuterol/ Ipratropium (Duoneb) 3 ml RTQID NEB Last administered on 05/08/19at 07:38; Start 05/08/19 at 08:00; Stop 05/09/19 at 07:59 Azithromycin (Zithromax) 500 mg 1X ONCE PO Last administered on 05/07/19at 23:45; Start 05/07/19 at 23:45; Stop 05/07/19 at 23:46; Status DC Magnesium Sulfate/ Dextrose 100 ml @ 25 mls/hr 1X ONCE IV Last administered on 05/08/19at 02:25; Start 05/08/19 at 02:30; Stop 05/08/19 at 06:29; Status DC Budesonide (Pulmicort) 0.5 mg RTBID NEB Last administered on 05/08/19at 07:38; Start 05/08/19 at 08:00 Active Scripts Active Synthroid (Levothyroxine Sodium) 75 Mcg Tablet 75 Mcg PO DAILY07 Guaifenesin Dm Syrup (Guaifenesin/Dextromethorphan) 5 Ml Syrup 10 Ml PO QID PRN Reported Gabapentin 600 Mg Tablet 600 Mg PO QID Diazepam 2 Mg Tablet 1 Mg PO TID Latuda (Lurasidone Hcl) 80 Mg Tablet 80 Mg PO HS Venlafaxine Hcl Er (Venlafaxine Hcl) 225 Mg Tab.er.24 1 Tab PO DAILY Oxcarbazepine 300 Mg Tablet 300 Mg PO TID Levothyroxine Sodium 75 Mcg Tablet 75 Mcg PO DAILY Diazepam 5 Mg Tablet 10 Mg PO TID PRN Atorvastatin Calcium 40 Mg Tablet 40 Mg PO DAILY Gabapentin 600 Mg Tablet 600 Mg PO TID Clopidogrel (Clopidogrel Bisulfate) 75 Mg Tablet 1 Tab PO DAILY Allergies Allergies: Coded Allergies: NSAIDS (Non-Steroidal Anti-Inflamma (Verified Allergy, Intermediate, PASS OUT, 10/30/16) Penicillins (Verified Allergy, Intermediate, RASH, 10/30/16) Sulfa (Sulfonamide Antibiotics) (Verified Allergy, Intermediate, RASH, 10/30/16) Tetracyclines (Verified Allergy, Intermediate, RASH, 10/30/16) aspirin (Verified Allergy, Intermediate, PASS OUT, 10/30/16) ROS General: YES: Fatigue, Malaise; No: Chills, Night Sweats, Appetite, Other PSYCHOLOGICAL ROS: YES: Anxiety, Sleep disturbances; No: Behavioral Disorder, Concentration difficultie, Decreased libido, Depression, Disorientation, Hallucinations, Hostility, Irritablity, Memory difficulties, Mood Swings, Obsessive thoughts, Other Eyes: No Blurry vision, No Decreased vision, No Double vision, No Dry eyes, No Excessive tearing, No Eye Pain, No Itchy Eyes, No Loss of vision, No Photophobia, No Scotomata, No Uses contacts, No Uses glasses, No Other HEENT: YES: Heacaches; No: Visual Changes, Hearing change, Nasal congestion, Nasal discharge, Oral lesions, Sinus pain, Sore Throat, Epistaxis, Sneezing, Snoring, Tinnitus, Vertigo, Vocal changes, Other Respiratory: YES: Cough, Shortness of breath, Sputum Changes, Tachypnea, Wheezing; No: Hemoptysis, Orthopnea, Pleuritic Pain, SOB with excertion, Stridor, Other Cardiovascular: No Chest Pain, No Palpitations, No Orthopnea, No Paroxysmal Noc. Dyspnea, No Edema, No Lt Headedness, No Other Gastrointestinal: No Nausea, No Vomiting, No Abdominal Pain, No Diarrhea, No Constipation, No Melena, No Hematochezia, No Other Genitourinary: No Dysuria, No Frequency, No Incontinence, No Hematuria, No Retention, No Discharge, No Urgency, No Pain, No Flank Pain, No Other, No , No , No , No , No , No , No Musculoskeletal: Yes Gait Disturbance, Yes Joint Stiffness Neurological: Yes Gait Disturbance; No Behavorial Changes, No Bowel/Bladder ControlChng, No Confusion, No Dizziness, No Headaches, No Impaired Coord/balance, No Memory Loss, No Numbness/Tingling, No Seizures, No Speech Problems, No Tremors, No Visual Change s, No Weakness, No Other Skin: No Dry Skin, No Eczema, No Hair Changes, No Lumps, No Mole Changes, No Mottling, No Nail Changes, No Pruritus, No Rash, No Skin Lesion Changes, No Other, No Acne Physical Exam General: Alert, Oriented X3, Cooperative HEENT: Atraumatic, PERRLA Lungs: Other (mod volume, rales, coarse, no wheeze, ) Abdomen: Normal bowel sounds, Soft Rectal Exam: not examined Extremities: No clubbing, No cyanosis, Other (1+ BLE edema) Skin: No rashes Neuro: Normal speech, Sensation intact Psych/Mental Status: Mental status NL, Mood NL Vitals Vitals Vital Signs Date Time Temp Pulse Resp B/P (MAP) Pulse Ox O2 Delivery O2 Flow Rate FiO2 05/08/19 07:39 94 Room Air 05/08/19 02:24 98.0 100 17 116/65 (82) 98.0 Labs Labs Laboratory Tests Test 05/07/19 22:45 05/07/19 23:14 05/08/19 00:57 05/08/19 05:20 White Blood Count 10.9 x10^3/uL (4.0-11.0) 6.3 x10^3/uL (4.0-11.0) Red Blood Count 3.74 x10^6/uL (3.50-5.40) 3.94 x10^6/uL (3.50-5.40) Hemoglobin 11.4 g/dL (12.0-15.5) 11.7 g/dL (12.0-15.5) Hematocrit 34.3 % (36.0-47.0) 35.7 % (36.0-47.0) Mean Corpuscular Volume 92 fL (79-100) 91 fL (79-100) Mean Corpuscular Hemoglobin 30 pg (25-35) 30 pg (25-35) Mean Corpuscular Hemoglobin Concent 33 g/dL (31-37) 33 g/dL (31-37) Red Cell Distribution Width 19.1 % (11.5-14.5) 18.4 % (11.5-14.5) Platelet Count 249 x10^3/uL (140-400) 255 x10^3/uL (140-400) Neutrophils (%) (Auto) 60 % (31-73) 86 % (31-73) Lymphocytes (%) (Auto) 29 % (24-48) 13 % (24-48) Monocytes (%) (Auto) 7 % (0-9) 1 % (0-9) Eosinophils (%) (Auto) 3 % (0-3) 0 % (0-3) Basophils (%) (Auto) 1 % (0-3) 1 % (0-3) Neutrophils # (Auto) 6.5 x10^3/uL (1.8-7.7) 5.4 x10^3/uL (1.8-7.7) Lymphocytes # (Auto) 3.1 x10^3/uL (1.0-4.8) 0.8 x10^3/uL (1.0-4.8) Monocytes # (Auto) 0.8 x10^3/uL (0.0-1.1) 0.1 x10^3/uL (0.0-1.1) Eosinophils # (Auto) 0.3 x10^3/uL (0.0-0.7) 0.0 x10^3/uL (0.0-0.7) Basophils # (Auto) 0.1 x10^3/uL (0.0-0.2) 0.0 x10^3/uL (0.0-0.2) Prothrombin Time 12.6 SEC (11.7-14.0) Prothromb Time International Ratio 1.0 (0.8-1.1) Activated Partial Thromboplast Time 25 SEC (24-38) Sodium Level 148 mmol/L (136-145) 144 mmol/L (136-145) Potassium Level 3.5 mmol/L (3.5-5.1) 3.9 mmol/L (3.5-5.1) Chloride Level 109 mmol/L (98-107) 108 mmol/L (98-107) Carbon Dioxide Level 28 mmol/L (21-32) 28 mmol/L (21-32) Anion Gap 11 (6-14) 8 (6-14) Blood Urea Nitrogen 16 mg/dL (7-20) 17 mg/dL (7-20) Creatinine 1.1 mg/dL (0.6-1.0) 0.8 mg/dL (0.6-1.0) Estimated GFR (Cockcroft-Gault) 51.0 73.7 BUN/Creatinine Ratio 15 (6-20) 21 (6-20) Glucose Level 118 mg/dL (70-99) 147 mg/dL (70-99) Calcium Level 8.2 mg/dL (8.5-10.1) 8.4 mg/dL (8.5-10.1) Magnesium Level 1.5 mg/dL (1.8-2.4) Total Bilirubin 0.1 mg/dL (0.2-1.0) 0.1 mg/dL (0.2-1.0) Aspartate Amino Transf (AST/SGOT) 17 U/L (15-37) 17 U/L (15-37) Alanine Aminotransferase (ALT/SGPT) 21 U/L (14-59) 20 U/L (14-59) Alkaline Phosphatase 103 U/L (46-116) 96 U/L (46-116) Troponin I Quantitative < 0.017 ng/mL (0.000-0.055) OA-Sdo-Z-Type Natriuretic Peptide 64 pg/mL (0-124) Total Protein 6.2 g/dL (6.4-8.2) 6.7 g/dL (6.4-8.2) Albumin 2.6 g/dL (3.4-5.0) 2.8 g/dL (3.4-5.0) Albumin/Globulin Ratio 0.7 (1.0-1.7) 0.7 (1.0-1.7) Ethyl Alcohol Level 81 mg/dL (0-10) Glucose (Fingerstick) 113 mg/dL (70-99) Segmented Neutrophils % 93 % (35-66) Lymphocytes % 6 % (24-48) Monocytes % 1 % (0-10) Platelet Estimate Adequate (ADEQUATE) Anisocytosis Slight Laboratory Tests Test 05/07/19 22:45 05/07/19 23:14 05/08/19 00:57 05/08/19 05:20 White Blood Count 10.9 x10^3/uL (4.0-11.0) 6.3 x10^3/uL (4.0-11.0) Red Blood Count 3.74 x10^6/uL (3.50-5.40) 3.94 x10^6/uL (3.50-5.40) Hemoglobin 11.4 g/dL (12.0-15.5) 11.7 g/dL (12.0-15.5) Hematocrit 34.3 % (36.0-47.0) 35.7 % (36.0-47.0) Mean Corpuscular Volume 92 fL (79-100) 91 fL (79-100) Mean Corpuscular Hemoglobin 30 pg (25-35) 30 pg (25-35) Mean Corpuscular Hemoglobin Concent 33 g/dL (31-37) 33 g/dL (31-37) Red Cell Distribution Width 19.1 % (11.5-14.5) 18.4 % (11.5-14.5) Platelet Count 249 x10^3/uL (140-400) 255 x10^3/uL (140-400) Neutrophils (%) (Auto) 60 % (31-73) 86 % (31-73) Lymphocytes (%) (Auto) 29 % (24-48) 13 % (24-48) Monocytes (%) (Auto) 7 % (0-9) 1 % (0-9) Eosinophils (%) (Auto) 3 % (0-3) 0 % (0-3) Basophils (%) (Auto) 1 % (0-3) 1 % (0-3) Neutrophils # (Auto) 6.5 x10^3/uL (1.8-7.7) 5.4 x10^3/uL (1.8-7.7) Lymphocytes # (Auto) 3.1 x10^3/uL (1.0-4.8) 0.8 x10^3/uL (1.0-4.8) Monocytes # (Auto) 0.8 x10^3/uL (0.0-1.1) 0.1 x10^3/uL (0.0-1.1) Eosinophils # (Auto) 0.3 x10^3/uL (0.0-0.7) 0.0 x10^3/uL (0.0-0.7) Basophils # (Auto) 0.1 x10^3/uL (0.0-0.2) 0.0 x10^3/uL (0.0-0.2) Prothrombin Time 12.6 SEC (11.7-14.0) Prothromb Time International Ratio 1.0 (0.8-1.1) Activated Partial Thromboplast Time 25 SEC (24-38) Sodium Level 148 mmol/L (136-145) 144 mmol/L (136-145) Potassium Level 3.5 mmol/L (3.5-5.1) 3.9 mmol/L (3.5-5.1) Chloride Level 109 mmol/L (98-107) 108 mmol/L (98-107) Carbon Dioxide Level 28 mmol/L (21-32) 28 mmol/L (21-32) Anion Gap 11 (6-14) 8 (6-14) Blood Urea Nitrogen 16 mg/dL (7-20) 17 mg/dL (7-20) Creatinine 1.1 mg/dL (0.6-1.0) 0.8 mg/dL (0.6-1.0) Estimated GFR (Cockcroft-Gault) 51.0 73.7 BUN/Creatinine Ratio 15 (6-20) 21 (6-20) Glucose Level 118 mg/dL (70-99) 147 mg/dL (70-99) Calcium Level 8.2 mg/dL (8.5-10.1) 8.4 mg/dL (8.5-10.1) Magnesium Level 1.5 mg/dL (1.8-2.4) Total Bilirubin 0.1 mg/dL (0.2-1.0) 0.1 mg/dL (0.2-1.0) Aspartate Amino Transf (AST/SGOT) 17 U/L (15-37) 17 U/L (15-37) Alanine Aminotransferase (ALT/SGPT) 21 U/L (14-59) 20 U/L (14-59) Alkaline Phosphatase 103 U/L (46-116) 96 U/L (46-116) Troponin I Quantitative < 0.017 ng/mL (0.000-0.055) NR-Yty-X-Type Natriuretic Peptide 64 pg/mL (0-124) Total Protein 6.2 g/dL (6.4-8.2) 6.7 g/dL (6.4-8.2) Albumin 2.6 g/dL (3.4-5.0) 2.8 g/dL (3.4-5.0) Albumin/Globulin Ratio 0.7 (1.0-1.7) 0.7 (1.0-1.7) Ethyl Alcohol Level 81 mg/dL (0-10) Glucose (Fingerstick) 113 mg/dL (70-99) Segmented Neutrophils % 93 % (35-66) Lymphocytes % 6 % (24-48) Monocytes % 1 % (0-10) Platelet Estimate Adequate (ADEQUATE) Anisocytosis Slight VTE Prophylaxis Ordered VTE Prophylaxis Devices: Yes VTE Pharmacological Prophylaxi: Yes Assessment/Plan Assessment/Plan acute shortness of breath, with wheezing and tachypnea., acute bronchitis, better with steroids and nebs and abx today tobacco use disorder slurred speech w. metabolic encephalopathy on admit, mild intoxicated with EtOH, prior CVA, walks with walker Bipolar 2, anxiety disorder, sched Valium new LE edema, severe malnutrition, consult nutrition, check echo SHABBIR STEWART MD May 08, 2019 08:00
--- NOTE | 2019-05-08 08:07 | RAD ---
EXAM: AP View of the chest DATE: 05/07/2019 10:27 PM INDICATION: Wheezing, shortness of air COMPARISON: 03/28/2019 FINDINGS/ IMPRESSION: The heart is not enlarged. Aorta is mildly tortuous. Calcified mediastinal and hilar lymph nodes. Mediastinal and hilar contours are essentially stable accounting for differences in lung volume and technique. Mild elevation left hemidiaphragm. No lobar consolidation. No pleural effusion or pneumothorax. Electronically signed by: Darion Clark MD (05/08/2019 8:04 AM) [facility]
[2019-05-08] MEDS ORDERED: guaiFENesin DM 200MG/20MG 10 ML SYRUP PO PRN (08:30)
[2019-05-08] MEDS ORDERED: NICOTINE POLACRILEX 2MG GUM PACKAGE of 12. BC PRN (08:30)
[2019-05-08 08:41] LABS: BILIRUBIN,URINE NEGATIVE (NEG); CLARITY,URINE CLEAR; COLOR,URINE YELLOW; NITRITE,URINE NEGATIVE (NEG); PROTEIN,URINE NEGATIVE (NEG-TRACE); UROBILINOGEN,URINE 0.2 mg/dL (0.2 mg/dL)
[2019-05-08 08:44] LABS: BARBITURATES NEG (NEG); BENZODIAZEPINES NEG (NEG); CANNABINOIDS NEG (NEG); COCAINE NEG (NEG); METHADONE NEG (NEG); OPIATES NEG (NEG); PHENCYCLIDINE NEG (NEG)
[2019-05-08 08:45] LABS: AMPHETAMINE/METHAMPHETAMINE NEG (NEG)
[2019-05-08 08:51] LABS: SQUAMOUS EPITHELIAL CELL,UR FEW /LPF
[2019-05-08 08:52] LABS: BACTERIA,URINE FEW /HPF (0-FEW); RBC,URINE 0 /HPF (0-2); WBC,URINE OCC /HPF (0-4)
[2019-05-08] MEDS ORDERED: CLOPIDOGREL BISULFATE 75 MG TABLET PO SCH (09:00)
[2019-05-08] MEDS ORDERED: VENLAFAXINE XR 37.5 MG CAP.ER.24H. PO SCH (09:00)
[2019-05-08] MEDS ORDERED: predniSONE 20 MG TABLET PO SCH (09:00)
[2019-05-08] MEDS ORDERED: AZITHROMYCIN 250 MG TABLET. PO SCH (09:00)
[2019-05-08] MEDS ORDERED: LEVOTHYROXINE 75 MCG TABLET PO SCH (09:00)
[2019-05-08] MEDS: OXcarbazepine 300 MG TABLET PO SCH ×2 (09:00→13:32)
[2019-05-08] MEDS ORDERED: ATORVASTATIN CALCIUM 40 MG TABLET. PO SCH (09:00)
[2019-05-08] MEDS: GABAPENTIN 300 MG CAPSULE. PO SCH ×2 (09:09→13:32)
[2019-05-08] MEDS: diazePAM 2 MG TABLET PO SCH ×2 (09:09→13:32)
[2019-05-08 11:00] VITALS: BP 110/60
[2019-05-08] MEDS ORDERED: AZIT250T6 PO (14:47)
[2019-05-08] MEDS ORDERED: PRED-220 PO (14:47)
[2019-05-08 15:00] VITALS: BP 104/47
--- NOTE | 2019-05-08 16:13 | CARD ---
MR#: [id number] Date of Study: 05/08/2019 Ordering Physician: SHABBIR STEWART, Referring Physician: SIS DANIELS, Tech: Suad Craig APPROVED REPORT EXAM: Two-dimensional and M-mode echocardiogram with Doppler and color Doppler. Other Information Quality : AverageHR: 97bpm Technically limited study due to body habitus and smoking. INDICATION Edema 2D DIMENSIONS Left Atrium(2D)3.5 (1.6-4.0cm)IVSd1.3 (0.7-1.1cm) Aortic Root(2D)3.4 (2.0-3.7cm)LVDd5.0 (3.9-5.9cm) PWd1.2 (0.7-1.1cm)LVDs2.7 (2.5-4.0cm) FS (%) 46.0 %SV91.1 ml Aortic Valve AoV Peak Sav.239.6cm/sAoV VTI37.4cm AO Peak GR.23.0mmHgLVOT Peak Sav.144.7cm/s LVOT VTI 27.28cmAO Mean GR.12mmHg AI P 1/2 [id number] Mitral Valve MV E Yiagldkm420.9cm/sMV DECEL QUSU320nn MV A Btkrhayv848.2cm/sMV [id number] E/A Ratio0.7MVA (PHT)2.25cm2 TDI E/Lateral E'14.7E/Medial E'12.5 Pulmonary Valve PV Peak Tifoudwb337.6cm/sPV Peak Grad.7mmHg Tricuspid Valve TR P. Mwiawcyo942mp/sRAP [id number] TR Peak Gr.69oyLzAKWV16dlWe Pulmonary Vein S1 Uzusxpij93.9cm/sD2 Tgxqkmuz44.1cm/s PVa [id number] LEFT VENTRICLE The left ventricle is normal size. There is normal left ventricular wall thickness. The left ventricu lar systolic function is normal and the ejection fraction is within normal range. LV ejection fractio n is 60-65%. There is normal LV segmental wall motion. Transmitral Doppler flow pattern is Grade I-ab normal relaxation pattern. RIGHT VENTRICLE The right ventricle is normal size. The right ventricular systolic function is normal. ATRIA The left atrium size is normal. The right atrium size is normal. The interatrial septum is intact wit h no evidence for an atrial septal defect or patent foramen ovale as noted on 2-D or Doppler imaging. AORTIC VALVE The aortic valve is normal in structure and function. Doppler and Color Flow revealed mild regurgitat ion. There is no significant aortic valvular stenosis. MITRAL VALVE The mitral valve is normal in structure and function. There is no evidence of mitral valve prolapse. There is no mitral valve stenosis. Doppler and Color Flow revealed no mitral valve regurgitation note d. TRICUSPID VALVE The tricuspid valve is normal in structure and function. Doppler and Color Flow revealed trace tricus pid regurgitation with an estimated PAP of 35 mmHg. There is no tricuspid valve stenosis. PULMONIC VALVE The pulmonic valve is not well visualized. Doppler and Color Flow revealed no pulmonic valvular regur gitation. GREAT VESSELS The aortic root is normal in size. The IVC is normal in size and collapses >50% with inspiration. PERICARDIAL EFFUSION There is no evidence of significant pericardial effusion. Critical Notification Critical Value: No <Conclusion> The left ventricle is normal size. The left ventricular systolic function is normal and the ejection fraction is within normal range. LV ejection fraction is 60-65%. There is no significant aortic valvular stenosis. Doppler and Color Flow revealed mild regurgitation. Doppler and Color Flow revealed no mitral valve regurgitation noted. Doppler and Color Flow revealed trace tricuspid regurgitation with an estimated PAP of 35 mmHg. Signed by : Demetrio Marc MD Electronically Approved : 05/08/2019 16:12:55
--- NOTE | 2019-05-08 18:00 | NUR ---
Discharge Note: [facility] Discharge instructions and discharge home medications reviewed with Patient and a copy given. All questions have been answered and understanding verbalized. The following instructions and handouts were given: Discontinued IV . Patient discharged to home with self care via ambulation
--- NOTE | 2019-05-08 18:01 | NUR ---
Patient left without signing discharge paperwork and taking prescriptions.
[2019-05-08] MEDS ORDERED: LURASIDONE 40 MG TABLET. PO SCH (21:00)
== END 2019-05-08 18:02 | disposition home or self-care (01) | DRG 202 ==
LOC: ER 22:15 → 2 NORTH 23:05
PROVIDERS: ADMIT Internal Medicine; ATTEND Internal Medicine
DX: J20.9 Acute bronchitis, unspecified (principal); G93.41 Metabolic encephalopathy; E43 Unspecified severe protein-calorie malnutrition; F31.81 Bipolar II disorder; I10 Essential (primary) hypertension; F43.10 Post-traumatic stress disorder, unspecified; E03.9 Hypothyroidism, unspecified; F17.210 Nicotine dependence, cigarettes, uncomplicated; F10.129 Alcohol abuse with intoxication, unspecified; Z68.34 Body mass index [BMI] 34.0-34.9, adult; J45.909 Unspecified asthma, uncomplicated; Z79.02 Long term (current) use of antithrombotics/antiplatelets; Z86.718 Personal history of other venous thrombosis and embolism; Z98.51 Tubal ligation status; Z88.8 Allergy status to other drugs, medicaments and biological substances; Z88.1 Allergy status to other antibiotic agents; Z88.0 Allergy status to penicillin; Z86.73 Personal history of transient ischemic attack (TIA), and cerebral infarction without residual deficits
CPT/HCPCS: 36415; 71045; 80053; 80307; 81001; 82962; 83735; 83880; 84484; 85007; 85025; 85610; 85730; 93005; 93306; 93970; 94640; 94760; 96361; 96374; 99406; G0480; J2930; J3475; J7040; J7512; J7620; J7626; Q0144; 92610; 99285-25